=== PATIENT | female | born 1965 ===

== ENCOUNTER 2018-11-25 08:22 | Emergency (ER) | payer OTHER ==
--- OUTSIDE RECORDS SUMMARY | 2018-11-25 08:32 | XMS REPORT | Continuity of Care Document ---
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 Active Family History Date Family Member(s) Problem(s) Comments General Non Contributory First Daughter Migraine Second Daughter Migraine Social History Type Date Description Comments Sex Unknown Tobacco Use Start: Unknown Denies Smoking Recreational Drug Use Denies Drug Use Tobacco Use Start: Unknown Patient has never smoked Smoking Status Reviewed: 09/23/17 Patient has never smoked Seat Belt/Car Seat Always uses a seat belt Allergies, Adverse Reactions, Alerts Date Description Reaction Status Severity Comments 02/20/2011 NKDA Active 10/16/2005 Nka Active Medications Medication Date Status Form Strength Qnty SIG Indications Ordering Provider Hydrocodone 04/27/ Active Tablets 5-325mg 120tab 1 tab by Candie Bitartrate/Acet 2018 s mouth every Juan Carlos, aminophen 6 hours M.DNeil Levothyroxine 11/18/ Active Tablets 200mcg 90tabs 1 by mouth Candie Sodium 2017 every day Anh Rangel Levothyroxine 11/18/ Active Tablets 25mcg 90tabs 1 by mouth E03.9 Candie Sodium 2017 every day Anh Rangel Ciprofloxacin 04/27/ Hx Tablets 250mg 14tabs 1 by mouth N39.0 Candie HCL 2018 - twice a day Juan Carlos 10/29/ M.D. 2018 Azithromycin 09/23/ Hx Tablets 250mg 6tabs 2 po today, J01.90 Candie 2017 - 1 po day 2 Gauss, 01/12/ thru 5 M.D. 2017 Levothyroxine 07/11/ Hx Tablets 200mcg 90tabs 1 by mouth Candie Sodium 2015 - every day Gauss, 11/18/ M.D. 2016 Hydrocodone 12/27/ Hx Tablets 5-300mg 120tab 1 by mouth Candie Bitartrate/Acet 2014 - s every 6 Gauss, aminophen 04/27/ hours as M.D. 2018 needed severe pain Azithromycin 01/12/ Hx Tablets 250mg 6tabs 2 po today, 473.90 Candie 2012 - 1 po day 2 Gauss, 07/05/ thru 5 M.D. 2012 Robitussin With 01/12/ Hx Liquid 8Oz 1-2 473.90 Candie Codeine 2012 - teaspoon po Gauss, 07/05/ q 4-6 hrs M.D. 2012 for cough Azithromycin 11/05/ Hx Tablets 250mg 6tabs 2 po today, 473.90 Candie 2011 - 1 po day 2 Gauss, 11/14/ thru 5 M.D. 2011 Tramadol HCL 11/21/ Hx Tablets 50mg 60tabs 1 po q 6 346.93 Candie 2011 - hours prn Gauss, 02/20/ pain M.D. 2010 Hydrocodone/Apa 05/31/ Hx Tablets 5-500mg 120tab 1 po q 6 847.0 Candie corona 2008 - s hours prn Gauss, 12/27/ pain M.D. 2013 Levothyroxine 03/01/ Hx Tablets 175mcg 90tabs 1 po qd 244.90 Candie Sodium 2008 - Gauss, 07/11/ M.D. 2014 Zithromax 11/30/ Hx Tablets 500mg 5tabs 1 po qd 473.90 Candie 2008 - for five Gauss, 03/01/ days M.D. 2008 Flexeril 11/30/ Hx Tablets 5mg 30tabs 1 po tid 840.9 Candie 2008 - prn Gauss, 04/20/ M.D. 2013 Treximet 08/24/ Hx Tablets 85-500mg 30tabs 1tab po qd 346.93 Candie 2008 - prn Juan Carlos, M.D. 2009 Bactrim DS 05/10/ Hx Tablets 800-160 20tabs 1 PO bid 599.0 Candie 2007 - Juan Carlos, M.D. 2008 Celebrex 12/20/ Hx Capsules 200mg 180cap 1 po bid Candie 2008 - s Juan Carlos, M.D. 2008 Naproxen Sodium 12/16/ Hx Tablets 500mg 60tabs 1 po tid Candie Extended 2008 - with food Juan Carlos, Release 12/20/ prn pain M.D. 2008 Ultracet 12/15/ Hx Tablets 325mg;37.5 30tabs one po q 6 Candie 2008 - mg hr.prn Juan Carlos M.D. 2008 Flexeril 12/09/ Hx Tablets 5mg 30tabs 1 po tid 847.0 Candie 2008 - prn Juan Carlos, M.D. 2007 Levoxyl 08/20/ Hx Tablets 150mcg 90tabs 1 Tab po qd 244.90 Candie 2006 - Juan Carlos M.DNeil 2009 Relpax 02/17/ Hx Tablets 40mg 1 po at 346.80 Candie 2007 - onset of Juan Carlos, M.D. 2008 Zithromax 08/19/ Hx Tablets 500mg 3tabs 1 tab po qd 473.90 Candie Tri-Paramjit 2006 - for 3 days Juan Carlos M.DNeil 2007 Levoxyl 07/03/ Hx Tablets 137mcg 90tabs 1 po qd Candie 2005 - Juan Carlos M.D. 2007 Zithromax Z-Paramjit 12/06/ Hx Tablets 250mg 1Pak 1 po qd as Candie 2006 - directed Juan Carlos 12/16/ M.D. 2006 Levoxyl 10/16/ Hx Tablets 50mcg 90tabs 1 po qd Candie 2006 - Juan Carlos M.D. 2006 Levoxyl 10/16/ Hx Tablets 112mcg 90tabs 1 po qd Candie 2006 - Juan Carlos M.D. 2006 Ibuprofen 10/16/ Hx Tablets 400mg 1 Tab PO Candie 2006 - Every 6 HRS Juan Carlos 03/01/ as Needed M.DNeil 2008 Vicoprofen 10/16/ Hx Tablets 7.5mg;200 15tabs 1 tab po 842.02 Candie 2006 - mg bid prn Juan Carlos, 05/31/ Anh 2009 Medications Administered in Office Medication Date Status Form Strength Qnty SIG Indications Ordering Provider PPD Administered Injection Candie Rangel, 6 M.DNeil PPD Administered Injection Nurse 6 Immunizations CPT Code Status Date Vaccine Lot # [id number] Given 10/06/1989 Tetanus And Diptheria Toxiods TD-146 Vital Signs Date Vital Result Comment 11/02/2018 3:21pm BP Systolic 122 mmHg BP Diastolic 80 mmHg Heart Rate 72 /min Height 63 inches 5'3" Weight 165.00 lb BMI (Body Mass Index) 29.2 kg/m2 O2 % BldC Oximetry 99 % 08/03/2018 2:47pm BP Systolic 118 mmHg BP Diastolic 86 mmHg Heart Rate 86 /min Respiratory Rate 18 /min Height 63 inches 5'3" Weight 158.00 lb BMI (Body Mass Index) 28.0 kg/m2 O2 % BldC Oximetry 97 % 04/27/2018 1:25pm BP Systolic 130 mmHg BP Diastolic 80 mmHg Heart Rate 72 /min Body Temperature 97.3 F Respiratory Rate 18 /min Height 63 inches 5'3" Weight 158.00 lb BMI (Body Mass Index) 28.0 kg/m2 O2 % BldC Oximetry 98 % 01/12/2018 3:17pm BP Systolic 120 mmHg BP Diastolic 86 mmHg Heart Rate 75 /min Respiratory Rate 18 /min Height 63 inches 5'3" Weight 158.00 lb BMI (Body Mass Index) 28.0 kg/m2 O2 % BldC Oximetry 96 % 09/23/2017 2:49pm BP Systolic 122 mmHg BP Diastolic 80 mmHg Heart Rate 78 /min Body Temperature 97.0 F O2 % BldC Oximetry 98 % 07/08/2017 2:59pm BP Systolic 120 mmHg BP Diastolic 80 mmHg Height 63 inches 5'3" Weight 156.00 lb BMI (Body Mass Index) 27.6 kg/m2 03/11/2017 2:33pm BP Systolic 122 mmHg BP Diastolic 60 mmHg Height 63 inches 5'3" Weight 156.00 lb BMI (Body Mass Index) 27.6 kg/m2 12/30/2016 3:01pm BP Systolic 110 mmHg BP Diastolic 66 mmHg 11/18/2016 2:42pm BP Systolic 120 mmHg BP Diastolic 72 mmHg Height 63 inches 5'3" Weight 152.00 lb BMI (Body Mass Index) 26.9 kg/m2 08/01/2016 10:41am BP Systolic 130 mmHg BP Diastolic 68 mmHg 07/01/2016 10:27am BP Systolic 112 mmHg BP Diastolic 68 mmHg Height 64 inches 5'4" Weight 153.00 lb BMI (Body Mass Index) 26.3 kg/m2 02/27/2016 11:00am BP Systolic 112 mmHg BP Diastolic 74 mmHg Height 64 inches 5'4" Weight 156.00 lb BMI (Body Mass Index) 26.8 kg/m2 11/20/2015 10:11am BP Systolic 118 mmHg BP Diastolic 60 mmHg Height 64 inches 5'4" Weight 146.00 lb BMI (Body Mass Index) 25.1 kg/m2 08/15/2015 11:19am BP Systolic 110 mmHg BP Diastolic 78 mmHg Height 64 inches 5'4" Weight 154.00 lb BMI (Body Mass Index) 26.4 kg/m2 07/11/2015 9:58am BP Systolic 120 mmHg BP Diastolic 70 mmHg Height 64 inches 5'4" Weight 156.00 lb BMI (Body Mass Index) 26.8 kg/m2 04/10/2015 10:37am BP Systolic 110 mmHg BP Diastolic 70 mmHg 12/07/2014 10:07am BP Systolic 108 mmHg BP Diastolic 60 mmHg 08/09/2014 10:07am BP Systolic 118 mmHg BP Diastolic 74 mmHg Height 65 inches 5'5" Weight 151.00 lb BMI (Body Mass Index) 25.1 kg/m2 06/16/2014 1:06pm BP Systolic 112 mmHg BP Diastolic 70 mmHg 04/20/2014 10:12am BP Systolic 118 mmHg BP Diastolic 60 mmHg Height 66 inches 5'6" Weight 148.00 lb BMI (Body Mass Index) 23.9 kg/m2 12/20/2013 10:40am BP Systolic 110 mmHg BP Diastolic 70 mmHg Height 66 inches 5'6" Weight 152.00 lb BMI (Body Mass Index) 24.5 kg/m2 08/30/2013 10:52am BP Systolic 118 mmHg BP Diastolic 68 mmHg 07/06/2013 10:27am BP Systolic 110 mmHg BP Diastolic 70 mmHg Height 65 inches 5'5" Weight 146.00 lb BMI (Body Mass Index) 24.3 kg/m2 05/11/2013 1:25pm BP Systolic 100 mmHg BP Diastolic 64 mmHg 01/12/2013 11:25am BP Systolic 120 mmHg BP Diastolic 68 mmHg Body Temperature 98.1 F 12/30/2012 9:57am BP Systolic 110 mmHg BP Diastolic 66 mmHg Height 64 inches 5'4" Weight 145.00 lb BMI (Body Mass Index) 24.9 kg/m2 07/01/2012 10:00am BP Systolic 116 mmHg BP Diastolic 76 mmHg Height 64 inches 5'4" Weight 141.00 lb BMI (Body Mass Index) 24.2 kg/m2 02/13/2012 10:22am BP Systolic 110 mmHg BP Diastolic 68 mmHg Height 64 inches 5'4" Weight 142.00 lb BMI (Body Mass Index) 24.4 kg/m2 11/14/2011 11:19am BP Systolic 122 mmHg BP Diastolic 82 mmHg Height 64 inches 5'4" Weight 142.00 lb BMI (Body Mass Index) 24.4 kg/m2 11/05/2011 9:35am BP Systolic 116 mmHg BP Diastolic 80 mmHg Body Temperature 97.4 F 05/23/2011 11:38am BP Systolic 119 mmHg BP Diastolic 69 mmHg Height 64 inches 5'4" Weight 144.00 lb BMI (Body Mass Index) 24.7 kg/m2 11/21/2010 10:28am BP Systolic 130 mmHg BP Diastolic 68 mmHg Weight 142.00 lb 05/30/2010 10:55am BP Systolic 114 mmHg BP Diastolic 60 mmHg Weight 148.00 lb 11/29/2009 11:17am BP Systolic 120 mmHg BP Diastolic 68 mmHg Weight 141.00 lb 05/31/2009 10:08am BP Systolic 134 mmHg BP Diastolic 80 mmHg 03/01/2009 10:04am BP Systolic 132 mmHg BP Diastolic 80 mmHg Height 64 inches 5'4" Weight 152.00 lb BMI (Body Mass Index) 26.1 kg/m2 11/30/2008 2:42pm BP Systolic 118 mmHg BP Diastolic 60 mmHg Height 64 inches 5'4" Weight 146.00 lb BMI (Body Mass Index) 25.1 kg/m2 08/24/2008 10:04am BP Systolic 116 mmHg BP Diastolic 78 mmHg Height 64 inches 5'4" Weight 143.00 lb BMI (Body Mass Index) 24.5 kg/m2 05/10/2008 10:58am BP Systolic 132 mmHg BP Diastolic 70 mmHg Body Temperature 97.9 F Height 64 inches 5'4" 02/18/2008 10:16am BP Systolic 114 mmHg BP Diastolic 80 mmHg Height 64 inches 5'4" Weight 133.00 lb BMI (Body Mass Index) 22.8 kg/m2 12/10/2007 10:09am BP Systolic 100 mmHg BP Diastolic 70 mmHg Height 64 inches 5'4" 08/20/2007 9:52am BP Systolic 118 mmHg BP Diastolic 66 mmHg Height 64 inches 5'4" Weight 138.31 lb BMI (Body Mass Index) 23.7 kg/m2 02/17/2007 11:00am BP Systolic 128 mmHg BP Diastolic 68 mmHg Height 64 inches 5'4" Weight 149.00 lb BMI (Body Mass Index) 25.6 kg/m2 08/19/2006 10:39am BP Systolic 118 mmHg BP Diastolic 64 mmHg Height 64 inches 5'4" Weight 145.00 lb BMI (Body Mass Index) 24.9 kg/m2 07/03/2006 10:08am BP Systolic 122 mmHg BP Diastolic 68 mmHg Height 64 inches 5'4" Weight 144.00 lb BMI (Body Mass Index) 24.7 kg/m2 12/24/2005 10:04am BP Systolic 128 mmHg BP Diastolic 78 mmHg Height 64 inches 5'4" Weight 138.00 lb BMI (Body Mass Index) 23.7 kg/m2 10/16/2005 3:57pm BP Systolic 124 mmHg BP Diastolic 70 mmHg Height 64 inches 5'4" Results Test Date Facility Test Result H/L Range Note TSH & T4,Free 10/26/2018 [facility] TSH 0.36 mIU/L Low 0.40-4.50 1, [address] [place] [address] [phone] T4,Free 0.7 ng/dL Low 0.8-1.8 CBC 10/26/2018 [facility] WBC 3.9 3.8-10.8 (H/H,RBC,Indices,WBC,PLT) [address] thous/[place] [address] [phone] RBC 4.32 mill/L 3.80-5.10 Hemoglobin 12.9 g/dL 11.7-15.5 Hematocrit 38.0 % 35.0-45.0 MCV 88.2 FL 80.0-100.0 MCH 29.9 pg 27.0-33.0 MCHC 33.9 g/dL 32.0-36.0 RDW 13.5 % 11.0-15.0 Platelet Count 232 thous/L 140-400 MPV 10.3 FL 7.5-12.5 Basic Metabolic Panel 10/26/2018 [facility] Sodium 142 mmol/L 135-[address] [place] [address] [phone] Potassium 3.6 mmol/L 3.5-5.3 Chloride 107 mmol/L 98-110 Carbon Dioxide 29 mmol/L 20-32 3 Calcium 9.3 mg/dL 8.6-10.4 Glucose 79 mg/dL 65-99 4 Urea Nitrogen (BUN) 15 mg/dL 7-25 Creatinine 1.00 mg/dL 0.50-1.05 5 BUN/Creatinine Ratio 14.6 6-22 Egfr Non-Afr. Portuguese 65 ML/MIN/1.73M2 > Or=60 Egfr 75 ML/MIN/1.73M2 > Or=60 Lipid Panel 10/26/2018 [facility] Cholesterol 187 mg/dL <199 [address] [facility] [place] [address] [phone] HDL Cholesterol 62 mg/dL >50 Cholesterol/HDL Ratio 3.0 CALC <5.0 LDL Chol,Calculated 109 mg/dL High 0-100 6 Triglycerides 71 mg/dL <150 Non-HDL Cholesterol 126 mg/dL <130 7 CBC W/ Diff & PLT 04/21/2018 [facility] WBC 10.7 thous/L 3.8-10.8 [address] [facility] [place] [address] [phone] RBC 4.26 mill/L 3.80-5.10 Hemoglobin 12.9 g/dL 11.7-15.5 Hematocrit 39.3 % 35.0-45.0 MCV 92.4 FL 80.0-100.0 MCH 30.4 pg 27.0-33.0 MCHC 32.9 g/dL 32.0-36.0 RDW 13.6 % 11.0-15.0 Platelet Count 226 thous/L 140-400 Platelet Sufficiency PENDING MPV 10.5 FL 7.5-12.5 Neutrophils,Absolute 8660 cells/L High 0961-2841 Bands,Absolute PENDING Metamyelocytes,Absolute PENDING Myelocytes,Absolute PENDING Promyelocytes,Absolute PENDING Lymphocytes,Absolute 1240 cells/L 850-3900 Monocytes,Absolute 780 cells/L 200-950 Eosinophils,Absolute 40 cells/L 15-500 Basophils,Absolute 20 cells/L 0-200 Blast Cells,Absolute PENDING Nucleated RBC,Absolute PENDING Total Neutrophils,% 81 % High 40-75 Bands,% PENDING Metamyelocytes,% PENDING Myelocytes,% PENDING Promyelocytes,% PENDING Total Lymphocytes,% 12 % 12-47 Monocytes,% 7 % 4-12 Eosinophils,% 0 % 0-4 Basophils,% 0 % 0-1 8 Blasts,% PENDING Nucleated RBC PENDING RBC Morphology PENDING Anisocytosis PENDING Poikilocytosis PENDING Microcytosis PENDING Macrocytosis PENDING Polychromasia PENDING Hypochromasia PENDING Target Cells PENDING Basophilic Stippling PENDING Comment PENDING Lipid Panel 04/21/2018 [facility] Cholesterol 178 mg/dL <199 [address] [place] [id number] [phone] HDL Cholesterol 69 mg/dL >50 Cholesterol/HDL Ratio 2.6 CALC <5.0 LDL Chol,Calculated 95 mg/dL 0-100 9 Triglycerides 53 mg/dL <150 Non-HDL Cholesterol 109 mg/dL <130 10 Basic Metabolic Panel 04/21/2018 [facility] Sodium 140 mmol/L 135-146 6 [place], [place] [id number] [phone] Potassium 4.3 mmol/L 3.5-5.3 Chloride 105 mmol/L 98-110 Carbon Dioxide 25 mmol/L 20-31 Calcium 9.7 mg/dL 8.6-10.4 Glucose 94 mg/dL 65-99 11 Urea Nitrogen (BUN) 19 mg/dL 7-25 Creatinine 1.03 mg/dL 0.50-1.05 12 BUN/Creatinine Ratio 18.7 6-22 Egfr Non-Afr. Portuguese 63 ML/MIN/1.73M2 > Or=60 Egfr 73 ML/MIN/1.73M2 > Or=60 TSH & T4,Free 04/21/2018 [facility] TSH <0.01 mIU/L Low 0.40-4.[address] [place], [place] [id number] [phone] T4,Free 1.6 ng/dL 0.8-1.8 Lipid Panel 01/06/2018 [facility] Cholesterol 160 mg/dL <[address] [place], [place] [id number] [phone] HDL Cholesterol 57 mg/dL >50 Cholesterol/HDL Ratio 2.8 CALC <5.0 LDL Chol,Calculated 89 mg/dL 0-100 14 Triglycerides 48 mg/dL <150 Non-HDL Cholesterol 104 mg/dL <130 15 CBC W/ Diff & PLT 01/06/2018 [facility] WBC 5.6 thous/L 3.8-10.[address] [place], [place] [id number] [phone] RBC 4.04 mill/L 3.80-5.10 Hemoglobin 12.2 g/dL 11.7-15.5 Hematocrit 37.5 % 35.0-45.0 MCV 92.7 FL 80.0-100.0 MCH 30.2 pg 27.0-33.0 MCHC 32.6 g/dL 32.0-36.0 RDW 13.6 % 11.0-15.0 Platelet Count 269 thous/L 140-400 Platelet Sufficiency PENDING MPV 10.4 FL 7.5-12.5 Neutrophils,Absolute 3000 cells/L 8797-1833 Bands,Absolute PENDING Metamyelocytes,Absolute PENDING Myelocytes,Absolute PENDING Promyelocytes,Absolute PENDING Lymphocytes,Absolute 1900 cells/L 850-3900 Monocytes,Absolute 600 cells/L 200-950 Eosinophils,Absolute 100 cells/L 15-500 Basophils,Absolute 0 cells/L 0-200 Blast Cells,Absolute PENDING Nucleated RBC,Absolute PENDING Total Neutrophils,% 54 % 40-75 Bands,% PENDING Metamyelocytes,% PENDING Myelocytes,% PENDING Promyelocytes,% PENDING Total Lymphocytes,% 35 % 12-47 Monocytes,% 10 % 4-12 Eosinophils,% 1 % 0-4 Basophils,% 1 % 0-1 16 Blasts,% PENDING Nucleated RBC PENDING RBC Morphology PENDING Anisocytosis PENDING Poikilocytosis PENDING Microcytosis PENDING Macrocytosis PENDING Polychromasia PENDING Hypochromasia PENDING Target Cells PENDING Basophilic Stippling PENDING Comment PENDING TSH & T4,Free 01/06/2018 [facility] TSH 0.01 mIU/L Low 0.40-4.50 17 [address] [facility]. [place], [place] [address] [phone] T4,Free 1.7 ng/dL 0.8-1.8 Basic Metabolic Panel 01/06/2018 [facility] Sodium 141 mmol/L 135-[address] [place], [place] [id number] [phone] Potassium 4.8 mmol/L 3.5-5.3 Chloride 108 mmol/L 98-110 Carbon Dioxide 28 mmol/L 20-31 Calcium 9.6 mg/dL 8.6-10.4 Glucose 103 mg/dL High 65-99 18 Urea Nitrogen (BUN) 21 mg/dL 7-25 Creatinine 0.96 mg/dL 0.50-1.05 19 BUN/Creatinine Ratio 21.4 6-22 Egfr Non-Afr. Portuguese 68 ML/MIN/1.73M2 > Or=60 Egfr 79 ML/MIN/1.73M2 > Or=60 CBC W/ Diff & PLT 06/30/2017 [facility] WBC 4.8 thous/L 3.8-10.8 [address] [facility]. [place], [place] [id number] [phone] RBC 4.25 mill/L 3.80-5.10 Hemoglobin 12.9 g/dL 11.7-15.5 Hematocrit 39.1 % 35.0-45.0 MCV 92.0 FL 80.0-100.0 MCH 30.3 pg 27.0-33.0 MCHC 32.9 g/dL 32.0-36.0 RDW 13.9 % 11.0-15.0 Platelet Count 259 thous/L 140-400 Platelet Sufficiency PENDING MPV 10.7 FL 7.5-12.5 Neutrophils,Absolute 2410 cells/L 7837-3430 Bands,Absolute PENDING Metamyelocytes,Absolute PENDING Myelocytes,Absolute PENDING Promyelocytes,Absolute PENDING Lymphocytes,Absolute 1820 cells/L 850-3900 Monocytes,Absolute 440 cells/L 200-950 Eosinophils,Absolute 70 cells/L 15-500 Basophils,Absolute 30 cells/L 0-200 Blast Cells,Absolute PENDING Nucleated RBC,Absolute PENDING Total Neutrophils,% 51 % 40-75 Bands,% PENDING Metamyelocytes,% PENDING Myelocytes,% PENDING Promyelocytes,% PENDING Total Lymphocytes,% 38 % 12-47 Monocytes,% 9 % 4-12 Eosinophils,% 2 % 0-4 Basophils,% 1 % 0-1 20 Blasts,% PENDING Nucleated RBC PENDING RBC Morphology PENDING Anisocytosis PENDING Poikilocytosis PENDING Microcytosis PENDING Macrocytosis PENDING Polychromasia PENDING Hypochromasia PENDING Target Cells PENDING Basophilic Stippling PENDING Comment PENDING Basic Metabolic Panel 06/30/2017 [facility] Sodium 139 mmol/L 135-[address] [place] [address] [phone] Potassium 4.4 mmol/L 3.5-5.3 Chloride 107 mmol/L 98-110 Carbon Dioxide 25 mmol/L 20-31 Calcium 9.0 mg/dL 8.6-10.4 Glucose 93 mg/dL 65-99 21 Urea Nitrogen 19 mg/dL 7-25 Creatinine 0.95 mg/dL 0.50-1.05 22 BUN/Creatinine Ratio 19.7 6-22 Egfr Non-Afr. Portuguese 70 ML/MIN/1.73M2 > Or=60 Egfr 81 ML/MIN/1.73M2 > Or=60 TSH & T4,Free 06/30/2017 [facility] TSH 0.02 mIU/L Low 0.40-4.50 23 [address] [place] [address] [phone] T4,Free 1.7 ng/dL 0.8-1.8 Lipid Panel 06/30/2017 [facility] Cholesterol 176 mg/dL <199 [address] [facility] [place] [address] [phone] HDL Cholesterol 57 mg/dL >50 Cholesterol/HDL Ratio 3.1 CALC <5.0 LDL Chol,Calculated 103 mg/dL High <100 24 Triglycerides 69 mg/dL <150 Non-HDL Cholesterol 120 mg/dL <130 25 Basic Metabolic Panel 02/26/2017 [facility] Sodium 138 mmol/L 135-146 [address] [facility] [place] [address] [phone] Potassium 4.4 mmol/L 3.5-5.3 Chloride 102 mmol/L 98-110 Carbon Dioxide 29 mmol/L 20-31 Calcium 9.8 mg/dL 8.6-10.4 Glucose 118 mg/dL High 65-99 26 Urea Nitrogen 23 mg/dL 7-25 Creatinine 0.98 mg/dL 0.50-1.05 27 BUN/Creatinine Ratio 23.9 High 6-22 Egfr Non-Afr. Portuguese 67 ML/MIN/1.73M2 > Or=60 Egfr 78 ML/MIN/1.73M2 > Or=60 CBC W/ Diff & PLT 02/26/2017 [facility] WBC 5.1 thous/L 3.8-10.[address] [place] [address] [phone] RBC 4.42 mill/L 3.80-5.10 Hemoglobin 13.0 g/dL 11.7-15.5 Hematocrit 40.3 % 35.0-45.0 MCV 91.1 FL 80.0-100.0 MCH 29.4 pg 27.0-33.0 MCHC 32.3 g/dL 32.0-36.0 RDW 12.8 % 11.0-15.0 Platelet Count 323 thous/L 140-400 Platelet Sufficiency PENDING MPV 9.6 FL 7.5-12.5 Neutrophils,Absolute 2830 cells/L 6489-2443 Bands,Absolute PENDING Metamyelocytes,Absolute PENDING Myelocytes,Absolute PENDING Promyelocytes,Absolute PENDING Lymphocytes,Absolute 1790 cells/L 850-3900 Monocytes,Absolute 340 cells/L 200-950 Eosinophils,Absolute 110 cells/L 15-500 Basophils,Absolute 30 cells/L 0-200 Blast Cells,Absolute PENDING Nucleated RBC,Absolute PENDING Total Neutrophils,% 56 % 40-75 Bands,% PENDING Metamyelocytes,% PENDING Myelocytes,% PENDING Promyelocytes,% PENDING Total Lymphocytes,% 35 % 12-47 Monocytes,% 7 % 4-12 Eosinophils,% 2 % 0-4 Basophils,% 1 % 0-1 28 Blasts,% PENDING Nucleated RBC PENDING RBC Morphology PENDING Anisocytosis PENDING Poikilocytosis PENDING Microcytosis PENDING Macrocytosis PENDING Polychromasia PENDING Hypochromasia PENDING Target Cells PENDING Basophilic Stippling PENDING Comment PENDING TSH & T4,Free 02/26/2017 [facility] TSH <0.01 mIU/L Low 0.40-4.[address] [place] [address] [phone] T4,Free 1.6 ng/dL 0.8-1.8 Lipid Panel 02/26/2017 [facility] Cholesterol 183 mg/dL 125-[address] [place] [address] [phone] HDL Cholesterol 57 mg/dL > Or=46 Cholesterol/HDL Ratio 3.2 < Or=5.0 LDL Chol,Calculated 113 mg/dL <130 30 Triglycerides 65 mg/dL <150 Non-HDL Cholesterol 126 mg/dL 31 Thyroid 12/24/2016 [facility] Thyroglobulin 9 IU/mL High <Or=1 32 Peroxidase & [address] [place] [address] [phone] Thyroid Peroxidase AB 40 IU/mL High <9 TSH & T4,Free 12/24/2016 [facility] TSH 0.03 mIU/L Low 0.40-4.[address] [place] [address] [phone] T4,Free 1.9 ng/dL High 0.8-1.8 TSH & T4,Free 11/11/2016 [facility] TSH 18.93 mIU/L High 0.40-4.[address] [place] [address] [phone] T4,Free 0.7 ng/dL Low 0.8-1.8 TSH & T4,Free 06/25/2016 [facility] TSH 11.32 mIU/L High 0.40-4.[address] [place] [address] [phone] T4,Free 0.7 ng/dL Low 0.8-1.8 TSH & T4,Free 02/13/2016 [facility] TSH 15.79 mIU/L High 0.40-4.[address] [place] [address] [phone] T4,Free 0.8 ng/dL 0.8-1.8 CBC W/ Diff & PLT 02/13/2016 [facility] WBC 7.0 thous/L 3.8-10.8 [address] [place] [address] [phone] RBC 4.12 mill/L 3.80-5.10 Hemoglobin 12.6 g/dL 11.7-15.5 Hematocrit 39.1 % 35.0-45.0 MCV 94.8 FL 80.0-100.0 MCH 30.5 pg 27.0-33.0 MCHC 32.2 g/dL 32.0-36.0 RDW 14.4 % 11.0-15.0 Platelet Count 232 thous/L 140-400 Platelet Sufficiency NORMAL Normal MPV 10.3 FL 7.5-11.5 Neutrophils,Absolute 4790 cells/L 3927-7145 Bands,Absolute PENDING Metamyelocytes,Absolute PENDING Myelocytes,Absolute PENDING Promyelocytes,Absolute PENDING Lymphocytes,Absolute 1680 cells/L 850-3900 Monocytes,Absolute 420 cells/L 200-950 Eosinophils,Absolute 40 cells/L 15-500 Basophils,Absolute 40 cells/L 0-200 Blast Cells,Absolute PENDING Nucleated RBC,Absolute PENDING Total Neutrophils,% 68 % 40-75 Bands,% PENDING Metamyelocytes,% PENDING Myelocytes,% PENDING Promyelocytes,% PENDING Total Lymphocytes,% 24 % 12-47 Monocytes,% 6 % 4-12 Eosinophils,% 1 % 0-4 Basophils,% 1 % 0-1 37 Blasts,% PENDING Nucleated RBC PENDING RBC Morphology NORMAL Anisocytosis PENDING Poikilocytosis PENDING Microcytosis PENDING Macrocytosis PENDING Polychromasia PENDING Hypochromasia PENDING Target Cells PENDING Basophilic Stippling PENDING Comment PENDING BMP W/O Egfr 02/13/2016 [facility] Sodium 138 mmol/L 135-146 [address] [place] [address] [phone] Potassium 4.6 mmol/L 3.5-5.3 Chloride 104 mmol/L 98-110 Carbon Dioxide 25 mmol/L 19-30 Calcium 9.5 mg/dL 8.6-10.2 Glucose 76 mg/dL 65-99 38 Urea Nitrogen 18 mg/dL 7-25 Creatinine 1.13 mg/dL High 0.50-1.10 BUN/Creatinine Ratio 16.3 6-22 Lipid Panel 02/13/2016 [facility] Cholesterol 217 mg/dL High 125-[address] [place] [address] [phone] HDL Cholesterol 81 mg/dL > Or=46 Cholesterol/HDL Ratio 2.7 < Or=5.0 LDL Chol,Calculated 125 mg/dL <130 39 Triglycerides 53 mg/dL <150 Non-HDL Cholesterol 136 mg/dL 40 TSH & T4,Free 11/13/2015 [facility] TSH 0.03 mIU/L Low 0.40-4.50 41 [address] [facility] [place] [address] [phone] T4,Free 1.3 ng/dL 0.8-1.8 BMP W/O Egfr 08/08/2015 [facility] Sodium 139 mmol/L 135-[address] [place] [address] [phone] Potassium 4.4 mmol/L 3.5-5.3 Chloride 104 mmol/L 98-110 Carbon Dioxide 28 mmol/L 19-30 Calcium 9.6 mg/dL 8.6-10.2 Glucose 91 mg/dL 65-99 42 Urea Nitrogen 14 mg/dL 7-25 Creatinine 1.00 mg/dL 0.50-1.10 BUN/Creatinine Ratio 13.8 6-22 TSH & T4,Free 08/08/2015 [facility] TSH 0.07 mIU/L Low 0.40-4.[address] [place] [address] [phone] T4,Free 1.4 ng/dL 0.8-1.8 CBC W/ Diff & PLT 07/04/2015 [facility] WBC 3.9 thous/L 3.8-10.8 [address] [facility] [place] [address] [phone] RBC 4.09 mill/L 3.80-5.10 Hemoglobin 12.8 g/dL 11.7-15.5 Hematocrit 39.1 % 35.0-45.0 MCV 95.5 FL 80.0-100.0 MCH 31.3 pg 27.0-33.0 MCHC 32.7 g/dL 32.0-36.0 RDW 14.4 % 11.0-15.0 Platelet Count 236 thous/L 140-400 Platelet Sufficiency PENDING MPV 10.2 FL 7.5-11.5 Neutrophils,Absolute 2420 cells/L [phone] Bands,Absolute PENDING Metamyelocytes,Absolute PENDING Myelocytes,Absolute PENDING Promyelocytes,Absolute PENDING Lymphocytes,Absolute 1080 cells/L 850-3900 Monocytes,Absolute 310 cells/L 200-950 Eosinophils,Absolute 70 cells/L 15-500 Basophils,Absolute 0 cells/L 0-200 Blast Cells,Absolute PENDING Nucleated RBC,Absolute PENDING Total Neutrophils,% 62 % 40-75 Bands,% PENDING Metamyelocytes,% PENDING Myelocytes,% PENDING Promyelocytes,% PENDING Total Lymphocytes,% 28 % 12-47 Monocytes,% 8 % 4-12 Eosinophils,% 2 % 0-4 Basophils,% 0 % 0-1 44 Blasts,% PENDING Nucleated RBC PENDING RBC Morphology PENDING Anisocytosis PENDING Poikilocytosis PENDING Microcytosis PENDING Macrocytosis PENDING Polychromasia PENDING Hypochromasia PENDING Target Cells PENDING Basophilic Stippling PENDING Comment PENDING TSH & T4,Free 07/04/2015 [facility] TSH 5.44 mIU/L High 0.40-4.50 45 6 [place], [place] [id number] [phone] T4,Free 1.2 ng/dL 0.8-1.8 BMP W/O Egfr 07/04/2015 [facility] Sodium 138 mmol/L 135-146 [address] [place], [place] [id number] [phone] Potassium 4.7 mmol/L 3.5-5.3 Chloride 102 mmol/L 98-110 Carbon Dioxide 26 mmol/L 19-30 Calcium 10.3 mg/dL High 8.6-10.2 Glucose 87 mg/dL 65-99 46 Urea Nitrogen 22 mg/dL 7-25 Creatinine 1.28 mg/dL High 0.50-1.10 BUN/Creatinine Ratio 16.9 6-22 Lipid Panel 07/04/2015 [facility] Cholesterol 212 mg/dL High 125-[address] [place] [address] [phone] HDL Cholesterol 73 mg/dL > Or=46 Cholesterol/HDL Ratio 2.9 < Or=5.0 LDL Chol,Calculated 124 mg/dL <130 47 Triglycerides 74 mg/dL <150 Non-HDL Cholesterol 139 mg/dL 48 TSH & T4,Free 11/30/2014 [facility] TSH 3.23 mIU/L 0.40-4.[address] [place] [address] [phone] T4,Free 1.2 ng/dL 0.8-1.8 Laboratory test 11/30/2014 [facility] Iron,Total 230 g/dL High 40-190 finding [address] [facility] [place] [place] [address] [phone] Direct LDL 121 mg/dL <130 50 TSH & T4,Free 08/03/2014 [facility] TSH 3.59 mIU/L 0.40-4.50 51 [address] [facility] [place] [place] [address] [phone] T4,Free 0.8 ng/dL 0.8-1.8 Laboratory test 08/03/2014 [facility] Iron,Total 164 g/dL 40-190 finding [address] [facility] [place] [place] [address] [phone] TSH & T4,Free 06/17/2014 [facility] TSH 0.01 mIU/L Low 0.40-4.50 52 [address] [facility] [place] [place] [address] [phone] T4,Free 1.8 ng/dL 0.8-1.8 TSH & T4,Free 04/13/2014 [facility] TSH 0.19 mIU/L Low 0.40-4.50 53 [address] [facility] [place] [place] [address] [phone] T4,Free 1.2 ng/dL 0.8-1.8 TSH & T4,Free 12/09/2013 [facility] TSH 9.25 mIU/L High 0.40-4.50 54 [address] [facility] [place] [place] [address] [phone] T4,Free 0.9 ng/dL 0.8-1.8 Culture,Urine,Voided 07/06/2013 [facility] URINE-CC [address] [place] [address] [phone] Final Report (SEE NOTE) 55 BMP W/O Egfr 06/29/2013 [facility] Sodium 138 mmol/L 135-[address] [place] [address] [phone] Potassium 4.4 mmol/L 3.5-5.3 Chloride 106 mmol/L 98-110 Carbon Dioxide 25 mmol/L 19-30 Calcium 9.6 mg/dL 8.6-10.2 Glucose 80 mg/dL 65-99 56 Urea Nitrogen 13 mg/dL 7-25 Creatinine 1.01 mg/dL 0.50-1.10 BUN/Creatinine Ratio 12.4 6-22 CBC W/ Diff & PLT 06/29/2013 [facility] WBC 4.1 thous/L 3.8-10.[address] [place] [address] [phone] RBC 3.83 mill/L 3.80-5.10 Hemoglobin 12.1 g/dL 11.7-15.5 Hematocrit 35.8 % 35.0-45.0 MCV 93.3 FL 80.0-100.0 MCH 31.5 pg 27.0-33.0 MCHC 33.7 g/dL 32.0-36.0 RDW 13.5 % 11.0-15.0 Platelet Count 223 thous/L 140-400 Neutrophils,Absolute 2480 cells/L 7676-1672 Lymphocytes,Absolute 1320 cells/L 850-3900 Monocytes,Absolute 260 cells/L 200-950 Eosinophils,Absolute 50 cells/L 15-500 Basophils,Absolute 30 cells/L 0-200 Total Neutrophils,% 60 % 38-80 Total Lymphocytes,% 32 % 15-49 Monocytes,% 6 % 0-13 Eosinophils,% 1 % 0-8 Basophils,% 1 % 0-2 TSH & T4,Free 06/29/2013 [facility] TSH 1.42 mIU/L 0.40-4.[address] [place] [address] [phone] T4,Free 1.3 ng/dL 0.8-1.8 TSH & T4,Free 12/23/2012 [facility] TSH 2.78 mIU/L 0.40-4.[address] [place], [place] [id number] [phone] T4,Free 1.0 ng/dL 0.8-1.8 59 TSH & T4,Free 06/24/2012 [facility] TSH 0.14 mIU/L Low 0.40-4.[address] [place], [place] [address] [phone] T4,Free 1.2 ng/dL 0.8-1.8 CBC W/ Diff & PLT 06/24/2012 [facility] WBC 5.0 thous/L 3.8-10.[address] [place] [address] [phone] RBC 3.63 mill/L Low 3.80-5.10 Hemoglobin 11.8 g/dL 11.7-15.5 Hematocrit 34.8 % Low 35.0-45.0 MCV 96.0 FL 80.0-100.0 MCH 32.6 pg 27.0-33.0 MCHC 34.0 g/dL 32.0-36.0 RDW 13.0 % 11.0-15.0 Platelet Count 205 thous/L 140-400 Neutrophils,Absolute 3430 cells/L 0966-9227 Lymphocytes,Absolute 1200 cells/L 850-3900 Monocytes,Absolute 340 cells/L 200-950 Eosinophils,Absolute 30 cells/L 15-500 Basophils,Absolute 20 cells/L 0-200 Total Neutrophils,% 68 % 38-80 Total Lymphocytes,% 24 % 15-49 Monocytes,% 7 % 0-13 Eosinophils,% 1 % 0-8 Basophils,% 1 % 0-2 Laboratory test 06/24/2012 [facility] Glucose 83 mg/dL 65-99 [address] [place], [place] [id number] [phone] TSH & T4,Free 02/04/2012 [facility] TSH 2.63 mIU/L 0.40-4.[address] [place] [address] [phone] T4,Free 1.0 ng/dL 0.8-1.8 TSH & T4,Free 11/07/2011 [facility] TSH 4.98 mIU/L High 0.40-4.[address] [place], [place] [address] [phone] T4,Free 0.6 ng/dL Low 0.8-1.8 TSH & T4,Free 05/21/2011 [facility] TSH,3RD 0.01 mIU/L Low 0.40-4.[address] [place] [address] [phone] T4,Free 1.6 ng/dL 0.8-1.8 Laboratory test 05/21/2011 [facility] Glucose 98 mg/dL 65-99 [address] [place] [address] [phone] CBC W/ Diff & PLT 05/21/2011 [facility] WBC 5.5 thous/L 3.8-10.[address] [place], [place] [id number] [phone] RBC 4.03 mill/L 3.80-5.10 Hemoglobin 12.9 g/dL 11.7-15.5 Hematocrit 37.4 % 35.0-45.0 MCV 92.9 FL 80.0-100.0 MCH 32.1 pg 27.0-33.0 MCHC 34.5 g/dL 32.0-36.0 RDW 13.4 % 11.0-15.0 Platelet Count 235 thous/L 140-400 Neutrophils,Absolute 3340 cells/L 2873-5524 Lymphocytes,Absolute 1500 cells/L 850-3900 Monocytes,Absolute 470 cells/L 200-950 Eosinophils,Absolute 120 cells/L 15-500 Basophils,Absolute 40 cells/L 0-200 Total Neutrophils,% 61 % 38-80 Total Lymphocytes,% 28 % 15-49 Monocytes,% 9 % 0-13 Eosinophils,% 2 % 0-8 Basophils,% 1 % 0-2 Lipid Panel 05/21/2011 [facility] Cholesterol 179 mg/dL 125-[address] [place] [address] [phone] HDL Cholesterol 62 mg/dL > Or=46 Cholesterol/HDL Ratio 2.9 < Or=5.0 LDL Chol,Calculated 103 mg/dL <130 66 Triglycerides 71 mg/dL <150 T4 & TSH 02/06/2011 [facility] T4,Total 11.2 g/dL 4.5-12.[address] [place] [address] [phone] TSH,3RD Generation 0.01 mIU/L Low 0.40-4.50 67 Hepatic Function 02/06/2011 [facility] Alkaline Phosphatase 40 U/L 33- [address] [place] [address] [phone] Ast 12 U/L 10-30 Alt 12 U/L 6-40 Bilirubin,Total 0.5 mg/dL 0.2-1.2 Bilirubin,Direct 0.1 mg/dL < Or=0.2 Protein,Total 6.9 g/dL 6.2-8.3 Albumin 4.4 g/dL 3.6-5.1 Globulin,Calculated 2.5 g/dL 2.2-3.9 A/G Ratio 1.8 1.0-2.1 Vitamin D, 25 02/06/2011 [facility] Vitamin 27 ng/mL Low 30-[address] D,25-Oh,[place] [address] [phone] Vitamin D,25-Oh,D3 27 ng/mL Vitamin D,25-Oh,D2 <4 ng/mL 68 Basic Metabolic Panel 11/14/2010 [facility] Sodium 136 mmol/L 135-[address] [place] [address] [phone] Potassium 4.6 mmol/L 3.5-5.3 Chloride 105 mmol/L 98-110 Carbon Dioxide 22 mmol/L 21-33 Calcium 9.8 mg/dL 8.6-10.2 Glucose 87 mg/dL 65-99 69 Urea Nitrogen 20 mg/dL 7-25 Creatinine 1.00 mg/dL 0.59-1.07 BUN/Creatinine Ratio 19.8 6-22 Egfr Non-Afr. Portuguese 68 ML/MIN/1.73M2 > Or=60 Egfr 79 ML/MIN/1.73M2 > Or=60 Lipid Panel 11/14/2010 [facility] Cholesterol 182 mg/dL 125-[address] [place] [address] [phone] HDL Cholesterol 77 mg/dL > Or=46 Triglycerides 48 mg/dL <150 Cholesterol/HDL Ratio 2.4 < Or=5.0 LDL Chol,Calculated 95 mg/dL <130 70 CBC W/ Diff & PLT 11/14/2010 [facility] WBC 5.0 thous/L 3.8-10.[address] [place], [place] [id number] [phone] RBC 4.33 mill/L 3.80-5.10 Hemoglobin 13.5 g/dL 11.7-15.5 Hematocrit 40.2 % 35.0-45.0 MCV 92.9 FL 80.0-100.0 MCH 31.2 pg 27.0-33.0 MCHC 33.6 g/dL 32.0-36.0 RDW 13.2 % 11.0-15.0 Platelet Count 248 thous/L 140-400 Platelet Sufficiency NORMAL Normal Neutrophils,Absolute 3240 cells/L 4346-6806 Bands,Absolute DNR cells/L 0-750 Metamyelocytes,Absolute DNR cells/L 0 Myelocytes,Absolute DNR cells/L 0 Promyelocytes,Absolute DNR cells/L 0 Lymphocytes,Absolute 1290 cells/L 850-3900 Monocytes,Absolute 380 cells/L 200-950 Eosinophils,Absolute 20 cells/L 15-500 Basophils,Absolute 30 cells/L 0-200 Blast Cells,Absolute DNR cells/L 0 Nucleated RBC,Absolute DNR cells/L 0 Total Neutrophils,% 65 % 38-80 Bands,% DNR % 0-10 Metamyelocytes,% DNR % Myelocytes,% DNR % Promyelocytes,% DNR % Total Lymphocytes,% 26 % 15-49 Monocytes,% 8 % 0-13 Eosinophils,% 0 % 0-8 Basophils,% 1 % 0-2 Blasts,% DNR % Nucleated RBC DNR /100WBC 0 RBC Morphology NORMAL Anisocytosis DNR Poikilocytosis DNR Microcytosis DNR Macrocytosis DNR Polychromasia DNR Hypochromasia DNR Target Cells DNR Basophilic Stippling DNR Comment DNR TSH & T4,Free 11/14/2010 [facility] TSH,3RD <0.01 Low 0.40-4.[address] Generation mIU/L [place], [place] [address] [phone] T4,Free 1.4 ng/dL 0.8-1.8 TSH & T4,Free 05/16/2010 [facility] TSH,3RD 0.02 mIU/L Low 0.40-4.[address] [place] [address] [phone] T4,Free 1.0 ng/dL 0.8-1.8 BMP W/Egfr 11/16/2009 [facility] Sodium 140 mmol/L 135-[address] [place] [address] [phone] Potassium 3.7 mmol/L 3.5-5.3 Chloride 108 mmol/L 98-110 Carbon Dioxide 24 mmol/L 21-33 Calcium 8.8 mg/dL 8.6-10.2 Glucose 85 mg/dL 65-99 73 Urea Nitrogen 12 mg/dL 7-25 Creatinine 0.97 mg/dL 0.59-1.07 BUN/Creatinine Ratio 12.2 6-22 Egfr Non-Afr. Portuguese >60 ML/MIN/1.73M2 > Or=60 Egfr >60 ML/MIN/1.73M2 > Or=60 Lipid Panel 11/16/2009 [facility] Cholesterol 148 mg/dL 125-[address] [place] [address] [phone] HDL Cholesterol 47 mg/dL > Or=46 Cholesterol/HDL Ratio 3.1 < Or=5.0 LDL Chol,Calculated 80 mg/dL <130 74 Triglycerides 103 mg/dL <150 CBC W/ Diff & PLT 11/16/2009 [facility] WBC 3.7 thous/L Low 3.8-10.[address] [place] [address] [phone] RBC 4.19 mill/L 3.80-5.10 Hemoglobin 12.9 g/dL 11.7-15.5 Hematocrit 38.8 % 35.0-45.0 MCV 92.8 FL 80.0-100.0 MCH 30.8 pg 27.0-33.0 MCHC 33.2 g/dL 32.0-36.0 RDW 13.1 % 11.0-15.0 Platelet Count 239 thous/L 140-400 Platelet Sufficiency NORMAL Normal Neutrophils,Absolute 2570 cells/L 8282-3708 Bands,Absolute DNR cells/L 0-750 Metamyelocytes,Absolute DNR cells/L 0 Myelocytes,Absolute DNR cells/L 0 Promyelocytes,Absolute DNR cells/L 0 Lymphocytes,Absolute 670 cells/L Low 850-3900 Monocytes,Absolute 400 cells/L 200-950 Eosinophils,Absolute 40 cells/L 15-500 Basophils,Absolute 20 cells/L 0-200 Blast Cells,Absolute DNR cells/L 0 Nucleated RBC,Absolute DNR cells/L 0 Total Neutrophils,% 70 % 38-80 Bands,% DNR % 0-10 Metamyelocytes,% DNR % Myelocytes,% DNR % Promyelocytes,% DNR % Total Lymphocytes,% 18 % 15-49 Monocytes,% 11 % 0-13 Eosinophils,% 1 % 0-8 Basophils,% 0 % 0-2 Blasts,% DNR % Nucleated RBC DNR /100WBC 0 RBC Morphology NORMAL Anisocytosis DNR Poikilocytosis DNR Microcytosis DNR Macrocytosis DNR Polychromasia DNR Hypochromasia DNR Target Cells DNR Basophilic Stippling DNR Comment DNR TSH & T4,Free 11/16/2009 [facility] TSH,3RD 1.53 mIU/L 0.40-4.[address] [place], [place] [address] [phone] T4,Free 0.7 ng/dL Low 0.8-1.8 TSH & T4,Free 05/24/2009 [facility] TSH,3RD 0.02 mU/L Low 0.40-4.[address] [place], [place] [id number] [phone] T4,Free 1.6 ng/dL 0.8-1.8 CBC W/ Diff & PLT 02/22/2009 [facility] WBC 4.4 thous/L 3.8-10.[address] [place] [address] [phone] RBC 3.94 mill/L 3.80-5.10 Hemoglobin 12.9 g/dL 11.7-15.5 Hematocrit 36.7 % 35.0-45.0 MCV 93.0 FL 80.0-100.0 MCH 32.6 pg 27.0-33.0 MCHC 35.1 g/dL 32.0-36.0 RDW 13.2 % 11.0-15.0 Platelet Count 231 thous/L 140-400 Platelet Sufficiency NORMAL Normal Neutrophils,Absolute 2610 cells/L 4482-8055 Bands,Absolute DNR cells/L 0-750 Metamyelocytes,Absolute DNR cells/L 0 Myelocytes,Absolute DNR cells/L 0 Promyelocytes,Absolute DNR cells/L 0 Lymphocytes,Absolute 1320 cells/L 850-3900 Monocytes,Absolute 390 cells/L 200-950 Eosinophils,Absolute 40 cells/L 15-500 Basophils,Absolute 40 cells/L 0-200 Blast Cells,Absolute DNR cells/L 0 Nucleated RBC,Absolute DNR cells/L 0 Total Neutrophils,% 59 % 38-80 Bands,% DNR % 0-10 Metamyelocytes,% DNR % Myelocytes,% DNR % Promyelocytes,% DNR % Total Lymphocytes,% 30 % 15-49 Monocytes,% 9 % 0-13 Eosinophils,% 1 % 0-8 Basophils,% 1 % 0-2 Blasts,% DNR % Nucleated RBC DNR /100WBC 0 RBC Morphology NORMAL Anisocytosis DNR Poikilocytosis DNR Microcytosis DNR Macrocytosis DNR Polychromasia DNR Hypochromasia DNR Target Cells DNR Basophilic Stippling DNR Comment DNR Lipid Panel 02/22/2009 [facility] Cholesterol 164 mg/dL 125-[address] [place] [address] [phone] HDL Cholesterol 60 mg/dL > Or=46 Triglycerides 72 mg/dL <150 Cholesterol/HDL Ratio 2.7 < Or=5.0 LDL Chol,Calculated 90 mg/dL <130 77 TSH & T4,Free 02/22/2009 [facility] TSH,3RD 3.69 mU/L 0.40-4.[address] [place] [address] [phone] T4,Free 1.0 ng/dL 0.8-1.8 Laboratory test 02/22/2009 [facility] Glucose 55 mg/dL Low 65-99 [address] [place] [address] [phone] TSH & T4,Free 08/11/2008 [facility] TSH,3RD 0.52 mU/L 0.40-4.[address] [place] [address] [phone] T4,Free 1.1 ng/dL 0.8-1.8 TSH & T4,Free 02/04/2008 [facility] TSH,3RD 2.31 mU/L 0.40-4.[address] [place] [address] [phone] T4,Free 1.1 ng/dL 0.8-1.8 CSF Cell Count/Diff 12/11/2007 [facility] Color PINK [address] [place] [address] [phone] Appearance CLEAR CSF WBC 0 /mm3 0-5 CSF RBC 216 /mm3 High -0 Laboratory test 12/11/2007 [facility] CSF Cell DNR 83, [address] Count/[place] [address] [phone] Laboratory test 12/11/2007 [facility] CSF Glucose DNR [address] [place] [address] [phone] CSF Total Protein DNR 86 Laboratory test 12/11/2007 [facility] CSF Culture DNR [address] [place] [address] [phone] Laboratory test 12/11/2007 [facility] Urine HCG DNR [address] (Qualitative) [place] [address] [phone] TSH & T4,Free 08/13/2007 [facility] TSH,3RD 4.73 High 0.40- 89, [address] Generation mU/L 4.50 [place] [address] [phone] T4,Free 1.2 ng/dL 0.8-1.8 Lipid Panel 08/13/2007 [facility] Cholesterol 184 mg/dL 125-[address] [place] [address] [phone] HDL Cholesterol 74 mg/dL > Or=40 91 Cholesterol/HDL Ratio 2.5 < Or=5.0 LDL Chol,Calculated 102 mg/dL <130 92 Triglycerides 42 mg/dL <150 TSH & T4,Free 02/09/2007 [facility] TSH 4.70 mU/L 0.40-5.50 93 [facility] [place] [address] [phone] T4,Free 1.0 ng/dL 0.8-1.8 CBC W/ Diff & PLT 02/09/2007 [facility] WBC 4.9 thous/L 3.8-10.8 [address] [facility] [place] [address] [phone] RBC 4.16 mill/L 3.80-5.10 Hemoglobin 13.1 g/dL 11.7-15.5 Hematocrit 38.4 % 35.0-45.0 MCV 92.3 FL 80.0-100.0 MCH 31.6 pg 27.0-33.0 MCHC 34.2 g/dL 32.0-36.0 RDW 14.0 % 11.0-15.0 Platelet Count 261 thous/L 140-400 Platelet Sufficiency NORMAL Normal Neutrophils,Absolute 3380 cells/L 2636-4632 Bands,Absolute DNR cells/L 0-750 Metamyelocytes,Absolute DNR cells/L 0 Myelocytes,Absolute DNR cells/L 0 Promyelocytes,Absolute DNR cells/L 0 Lymphocytes,Absolute 1270 cells/L 850-3900 Monocytes,Absolute 210 cells/L 200-950 Eosinophils,Absolute 30 cells/L 15-500 Basophils,Absolute 10 cells/L 0-200 Blast Cells,Absolute DNR cells/L 0 Nucleated RBC,Absolute DNR cells/L 0 Total Neutrophils,% 69 % 38-80 Bands,% DNR % 0-10 Metamyelocytes,% DNR % Myelocytes,% DNR % Promyelocytes,% DNR % Total Lymphocytes,% 26 % 15-49 Monocytes,% 4 % 0-13 Eosinophils,% 1 % 0-8 Basophils,% 0 % 0-2 Blasts,% DNR % Nucleated RBC DNR /100WBC 0 RBC Morphology NORMAL Anisocytosis DNR Poikilocytosis DNR Microcytosis DNR Macrocytosis DNR Polychromasia DNR Hypochromasia DNR Target Cells DNR Basophilic Stippling DNR Comment DNR TSH & T4,Free 08/14/2006 [facility] TSH 0.21 mU/L Low 0.40-5.[address] [place] [address] [phone] T4,Free 1.4 ng/dL 0.8-1.8 TSH & T4,Free 06/26/2006 [facility] TSH 7.58 mU/L High 0.40-5.[address] [place] [address] [phone] T4,Free 1.1 ng/dL 0.8-1.8 1 FASTING 2 REFERENCE RANGES BELOW ARE APPLICABLE TO FEMALES FIRST TRIMESTER - 0.26 - 2.66 mIU/L SECOND TRIMESTER - 0.55 - 2.73 mIU/L THIRD TRIMESTER - 0.43 - 2.91 mIU/L 3 Reference range for high altitude clients: 18-30 mmol/L 4 GLUCOSE REFERENCE RANGE BASED ON FASTING SPECIMEN. 5 The upper reference limit for Creatinine is approximately 13% higher for people identified as -Portuguese. 6 LDL-C is now calculated using the Gael-Pulliam calculation, which is a validated novel method providing better accuracy than the Friedewald equation in the estimation of LDL-C. Gael SS et al.YIMI.2013;310(19):6927-8860 Desirable range <100 mg/dL for primary prevention; <70 mg/dL for patients with CHD or diabetic patients with >or=2 CHD risk factors. For additional information, please refer to http://education.[employer]/faq/WJL731(This link is being provided for informational/educational purposes only.) 7 For patients with diabetes plus 1 major ASCVD risk factor, treating to a non-HDL-C goal of <100 mg/dL (LDL-C of <70 mg/ dL) is considered a therapeutic option. 8 Relative blood cell counts (%) should be compared with absolute cell counts (cells/mcL). Relative counts may not be clinically meaningful if the absolute count of one or more cell type is decreased. Reference ranges for relative cell counts derived from: A Manual of Laboratory and Diagnostics Tests, 9th Ed, [employer], 2015. Pediatric Reference Intervals, 7th Ed, [employer], 2011. 9 LDL-C is now calculated using the Gael-Pulliam calculation, which is a validated novel method providing better accuracy than the Friedewald equation in the estimation of LDL-C. Gael SS et al.YIMI.2013;310(19):6908-1367 Desirable range <100 mg/dL for primary prevention; <70 mg/dL for patients with CHD or diabetic patients with >or=2 CHD risk factors. For additional information, please refer to http://[employer]/faq/OVU618(This link is being provided for informational/educational purposes only.) 10 For patients with diabetes plus 1 major ASCVD risk factor, treating to a non-HDL-C goal of <100 mg/dL (LDL-C of <70 mg/ dL) is considered a therapeutic option. 11 GLUCOSE REFERENCE RANGE BASED ON FASTING SPECIMEN. 12 The upper reference limit for Creatinine is approximately 13% higher for people identified as -Portuguese. 13 REFERENCE RANGES BELOW ARE APPLICABLE TO FEMALES FIRST TRIMESTER - 0.26 - 2.66 mIU/L SECOND TRIMESTER - 0.55 - 2.73 mIU/L THIRD TRIMESTER - 0.43 - 2.91 mIU/L 14 LDL-C is now calculated using the Gael-Pulliam calculation, which is a validated novel method providing better accuracy than the Friedewald equation in the estimation of LDL-C. Gael SS et al.YIMI.2013;310(19):3950-5987 (http://[employer]/faq/PVO950) Desirable range <100 mg/dL for patients with CHD or Diabetes and <70 mg/dL for Diabetic patients with known heart disease 15 For patients with diabetes plus 1 major ASCVD risk factor, treating to a non-HDL-C goal of <100 mg/dL (LDL-C of <70 mg/ dL) is considered a therapeutic option. 16 Relative blood cell counts (%) should be compared with absolute cell counts (cells/mcL). Relative counts may not be clinically meaningful if the absolute count of one or more cell type is decreased. Reference ranges for relative cell counts derived from: A Manual of Laboratory and Diagnostics Tests, 9th Ed, [employer], 2015. Pediatric Reference Intervals, 7th Ed, [facility] Press, 2011. 17 REFERENCE RANGES BELOW ARE APPLICABLE TO FEMALES FIRST TRIMESTER - 0.26 - 2.66 mIU/L SECOND TRIMESTER - 0.55 - 2.73 mIU/L THIRD TRIMESTER - 0.43 - 2.91 mIU/L 18 GLUCOSE REFERENCE RANGE BASED ON FASTING SPECIMEN. 19 The upper reference limit for Creatinine is approximately 13% higher for people identified as -Portuguese. 20 Relative blood cell counts (%) should be compared with absolute cell counts (cells/mcL). Relative counts may not be clinically meaningful if the absolute count of one or more cell type is decreased. Reference ranges for relative cell counts derived from: A Manual of Laboratory and Diagnostics Tests, 9th Ed, [employer], 2015. Pediatric Reference Intervals, 7th Ed, [employer], 2011. 21 GLUCOSE REFERENCE RANGE BASED ON FASTING SPECIMEN. 22 The upper reference limit for Creatinine is approximately 13% higher for people identified as -Portuguese. 23 REFERENCE RANGES BELOW ARE APPLICABLE TO FEMALES FIRST TRIMESTER - 0.26 - 2.66 mIU/L SECOND TRIMESTER - 0.55 - 2.73 mIU/L THIRD TRIMESTER - 0.43 - 2.91 mIU/L 24 The Gael-Pulliam calculation is a validated novel method that provides better accuracy than the Friedewald equation in the estimation of LDL-C, particularly when TG levels are 150-400 mg/dL and LDL-C levels are lower than 70 mg/dL. Reference: Gael HUGHES et al. Comparison of a Novel Method vs the Friedewald Equation for Estimating Low-Density Lipoprotein Cholesterol Levels From the Standard Lipid Profile. YIMI. 2013;310(19): 5207-7534. Desirable range <100 mg/dL for patients with CHD or Diabetes and <70 mg/dL for Diabetic patients with known heart disease 25 For patients with diabetes plus 1 major ASCVD risk factor, treating to a non-HDL-C goal of <100 mg/dL (LDL-C of <70 mg/ dL) is considered a therapeutic option. 26 GLUCOSE REFERENCE RANGE BASED ON FASTING SPECIMEN. 27 The upper reference limit for Creatinine is approximately 13% higher for people identified as -Portuguese. 28 Relative blood cell counts (%) should be compared with absolute cell counts (cells/mcL). Relative counts may not be clinically meaningful if the absolute count of one or more cell type is decreased. Reference ranges for relative cell counts derived from: A Manual of Laboratory and Diagnostics Tests, 9th Ed, [employer], 2015. Pediatric Reference Intervals, 7th Ed, [employer], 2011. 29 REFERENCE RANGES BELOW ARE APPLICABLE TO FEMALES FIRST TRIMESTER - 0.26 - 2.66 mIU/L SECOND TRIMESTER - 0.55 - 2.73 mIU/L THIRD TRIMESTER - 0.43 - 2.91 mIU/L 30 LDL-CHOLESTEROL RISK CATEGORY* GOAL VERY HIGH (E.G. DIABETES + CVD) <70 MG/DL HIGH (DIABETICS; CHD RISK EQUIVALENTS) <100 MG/DL MODERATELY HIGH (MULTIPLE(2+) RISK FACTORS) <130 MG/DL 0 TO 1 RISK FACTORS <160 MG/DL * NCEP REPORT. CIRCULATION 2004; 110: 227-239 31 Target for non-HDL cholesterol is 30 mg/dL higher than LDL cholesterol target. 32 THIS SPECIMEN WAS FOUND TO CONTAIN ANTI-THYROGLOBULIN ANTIBODIES. THE PRESENCE OF THESE AUTOANTIBODIES MAY CAUSE FALSELY LOW THYROGLOBULIN VALUES. IN TG-ANTIBODY POSITIVE PATIENTS THE THYROGLOBULIN BY [facility] SPECTROMETRY [TEST CODE #54589 THYROGLOBULIN,LC/ MS/MS; OR PANEL TEST CODE #10425 THYROID CANDER (THYROGLOBULIN) MONITORING] TEST IS RECOMMENDED BECAUSE IT HAS NO INTERFERENCE FROM AUTOANTIBODIES. 33 REFERENCE RANGES BELOW ARE APPLICABLE TO FEMALES FIRST TRIMESTER - 0.26 - 2.66 mIU/L SECOND TRIMESTER - 0.55 - 2.73 mIU/L THIRD TRIMESTER - 0.43 - 2.91 mIU/L 34 REFERENCE RANGES BELOW ARE APPLICABLE TO FEMALES FIRST TRIMESTER - 0.26 - 2.66 mIU/L SECOND TRIMESTER - 0.55 - 2.73 mIU/L THIRD TRIMESTER - 0.43 - 2.91 mIU/L 35 REFERENCE RANGES BELOW ARE APPLICABLE TO FEMALES FIRST TRIMESTER - 0.26 - 2.66 mIU/L SECOND TRIMESTER - 0.55 - 2.73 mIU/L THIRD TRIMESTER - 0.43 - 2.91 mIU/L 36 REFERENCE RANGES BELOW ARE APPLICABLE TO FEMALES FIRST TRIMESTER - 0.26 - 2.66 mIU/L SECOND TRIMESTER - 0.55 - 2.73 mIU/L THIRD TRIMESTER - 0.43 - 2.91 mIU/L 37 Relative blood cell counts (%) should be compared with absolute cell counts (cells/mcL). Relative counts may not be clinically meaningful if the absolute count of one or more cell type is decreased. Reference ranges for relative cell counts derived from: A Manual of Laboratory and Diagnostics Tests, 9th Ed, [employer], 2015. Pediatric Reference Intervals, 7th Ed, [facility] [employer], 2011. 38 GLUCOSE REFERENCE RANGE BASED ON FASTING SPECIMEN. 39 LDL-CHOLESTEROL RISK CATEGORY* GOAL VERY HIGH (E.G. DIABETES + CVD) <70 MG/DL HIGH (DIABETICS; CHD RISK EQUIVALENTS) <100 MG/DL MODERATELY HIGH (MULTIPLE(2+) RISK FACTORS) <130 MG/DL 0 TO 1 RISK FACTORS <160 MG/DL * NCEP REPORT. CIRCULATION 2004; 110: [phone] 40 Target for non-HDL cholesterol is 30 mg/dL higher than LDL cholesterol target. 41 REFERENCE RANGES BELOW ARE APPLICABLE TO FEMALES FIRST TRIMESTER - 0.26 - 2.66 mIU/L SECOND TRIMESTER - 0.55 - 2.73 mIU/L THIRD TRIMESTER - 0.43 - 2.91 mIU/L 42 GLUCOSE REFERENCE RANGE BASED ON FASTING SPECIMEN. 43 REFERENCE RANGES BELOW ARE APPLICABLE TO FEMALES FIRST TRIMESTER - 0.26 - 2.66 mIU/L SECOND TRIMESTER - 0.55 - 2.73 mIU/L THIRD TRIMESTER - 0.43 - 2.91 mIU/L 44 Relative blood cell counts (%) should be compared with absolute cell counts (cells/mcL). Relative counts may not be clinically meaningful if the absolute count of one or more cell type is decreased. Reference ranges for relative cell counts derived from: Pediatric Reference Intervals, 7th Ed, [employer], 2011. 45 REFERENCE RANGES BELOW ARE APPLICABLE TO FEMALES FIRST TRIMESTER - 0.26 - 2.66 mIU/L SECOND TRIMESTER - 0.55 - 2.73 mIU/L THIRD TRIMESTER - 0.43 - 2.91 mIU/L 46 GLUCOSE REFERENCE RANGE BASED ON FASTING SPECIMEN. 47 LDL-CHOLESTEROL RISK CATEGORY* GOAL VERY HIGH (E.G. DIABETES + CVD) <70 MG/DL HIGH (DIABETICS; CHD RISK EQUIVALENTS) <100 MG/DL MODERATELY HIGH (MULTIPLE(2+) RISK FACTORS) <130 MG/DL 0 TO 1 RISK FACTORS <160 MG/DL * NCEP REPORT. CIRCULATION 2004; 110: [phone] 48 Target for non-HDL cholesterol is 30 mg/dL higher than LDL cholesterol target. 49 REFERENCE RANGES BELOW ARE APPLICABLE TO FEMALES FIRST TRIMESTER - 0.26 - 2.66 mIU/L SECOND TRIMESTER - 0.55 - 2.73 mIU/L THIRD TRIMESTER - 0.43 - 2.91 mIU/L 50 LDL-CHOLESTEROL RISK CATEGORY* GOAL VERY HIGH (E.G. DIABETES + CVD) <70 MG/DL HIGH (DIABETICS; CHD RISK EQUIVALENTS) <100 MG/DL MODERATELY HIGH (MULTIPLE(2+) RISK FACTORS) <130 MG/DL 0 TO 1 RISK FACTORS <160 MG/DL * NCEP REPORT. CIRCULATION 2004; 110: [phone] 51 REFERENCE RANGES BELOW ARE APPLICABLE TO FEMALES FIRST TRIMESTER - 0.26 - 2.66 mIU/L SECOND TRIMESTER - 0.55 - 2.73 mIU/L THIRD TRIMESTER - 0.43 - 2.91 mIU/L 52 REFERENCE RANGES BELOW ARE APPLICABLE TO FEMALES FIRST TRIMESTER - 0.26 - 2.66 mIU/L SECOND TRIMESTER - 0.55 - 2.73 mIU/L THIRD TRIMESTER - 0.43 - 2.91 mIU/L 53 REFERENCE RANGES BELOW ARE APPLICABLE TO FEMALES FIRST TRIMESTER - 0.26 - 2.66 mIU/L SECOND TRIMESTER - 0.55 - 2.73 mIU/L THIRD TRIMESTER - 0.43 - 2.91 mIU/L 54 REFERENCE RANGES BELOW ARE APPLICABLE TO FEMALES FIRST TRIMESTER - 0.26 - 2.66 mIU/L SECOND TRIMESTER - 0.55 - 2.73 mIU/L THIRD TRIMESTER - 0.43 - 2.91 mIU/L 55 NO GROWTH 56 GLUCOSE REFERENCE RANGE BASED ON FASTING SPECIMEN. 57 REFERENCE RANGES BELOW ARE APPLICABLE TO FEMALES FIRST TRIMESTER - 0.26 - 2.66 mIU/L SECOND TRIMESTER - 0.55 - 2.73 mIU/L THIRD TRIMESTER - 0.43 - 2.91 mIU/L 58 REFERENCE RANGES BELOW ARE APPLICABLE TO FEMALES FIRST TRIMESTER - 0.26 - 2.66 mIU/L SECOND TRIMESTER - 0.55 - 2.73 mIU/L THIRD TRIMESTER - 0.43 - 2.91 mIU/L 59 THE CURRENT LOT OF FREE T4 REAGENT AVAILABLE FROM THE DIRECTOR OF MATH PRODUCES RESULTS THAT ARE APPROXIMATELY 9% HIGHER THAN PREVIOUS REAGENT LOTS. PLEASE INTERPRET THESE RESULTS ACCORDINGLY. 60 REFERENCE RANGES BELOW ARE APPLICABLE TO FEMALES FIRST TRIMESTER - 0.26 - 2.66 mIU/L SECOND TRIMESTER - 0.55 - 2.73 mIU/L THIRD TRIMESTER - 0.43 - 2.91 mIU/L 61 GLUCOSE REFERENCE RANGE BASED ON FASTING SPECIMEN. 62 REFERENCE RANGES BELOW ARE APPLICABLE TO FEMALES FIRST TRIMESTER - 0.20 - 4.70 mIU/L SECOND TRIMESTER - 0.30 - 4.10 mIU/L THIRD TRIMESTER - 0.40 - 2.70 mIU/L 63 REFERENCE RANGES BELOW ARE APPLICABLE TO FEMALES FIRST TRIMESTER - 0.20 - 4.70 mIU/L SECOND TRIMESTER - 0.30 - 4.10 mIU/L THIRD TRIMESTER - 0.40 - 2.70 mIU/L 64 REFERENCE RANGES BELOW ARE APPLICABLE TO FEMALES FIRST TRIMESTER - 0.20 - 4.70 mIU/L SECOND TRIMESTER - 0.30 - 4.10 mIU/L THIRD TRIMESTER - 0.40 - 2.70 mIU/L 65 GLUCOSE REFERENCE RANGE BASED ON FASTING SPECIMEN. 66 LDL-CHOLESTEROL RISK CATEGORY* GOAL VERY HIGH (E.G. DIABETES + CVD) <70 MG/DL HIGH (DIABETICS; CHD RISK EQUIVALENTS) <100 MG/DL MODERATELY HIGH (MULTIPLE(2+) RISK FACTORS) <130 MG/DL 0 TO 1 RISK FACTORS <160 MG/DL * NCEP REPORT. CIRCULATION 2004; 110: [phone] 67 REFERENCE RANGES BELOW ARE APPLICABLE TO FEMALES FIRST TRIMESTER - 0.20 - 4.70 mIU/L SECOND TRIMESTER - 0.30 - 4.10 mIU/L THIRD TRIMESTER - 0.40 - 2.70 mIU/L 68 25-OHD3 indicates both endogenous production and supplementation. 25-OHD2 is an indicator of exogenous sources such as diet or supplementation. Therapy is based on measurement of Total 25-OHD, with levels <20 ng/mL indicative of Vitamin D deficiency while levels between 20 ng/mL and 30 ng/mL suggest insufficiency. Optimal levels are > or=30ng/mL. 69 GLUCOSE REFERENCE RANGE BASED ON FASTING SPECIMEN. 70 LDL-CHOLESTEROL RISK CATEGORY* GOAL VERY HIGH (E.G. DIABETES + CVD) <70 MG/DL HIGH (DIABETICS; CHD RISK EQUIVALENTS) <100 MG/DL MODERATELY HIGH (MULTIPLE(2+) RISK FACTORS) <130 MG/DL 0 TO 1 RISK FACTORS <160 MG/DL * NCEP REPORT. CIRCULATION 2004; 110: [phone] 71 REFERENCE RANGES BELOW ARE APPLICABLE TO FEMALES FIRST TRIMESTER - 0.20 - 4.70 mIU/L SECOND TRIMESTER - 0.30 - 4.10 mIU/L THIRD TRIMESTER - 0.40 - 2.70 mIU/L 72 REFERENCE RANGES BELOW ARE APPLICABLE TO FEMALES FIRST TRIMESTER - 0.20 - 4.70 mIU/L SECOND TRIMESTER - 0.30 - 4.10 mIU/L THIRD TRIMESTER - 0.40 - 2.70 mIU/L 73 GLUCOSE REFERENCE RANGE BASED ON FASTING SPECIMEN. 74 LDL-CHOLESTEROL RISK CATEGORY* GOAL VERY HIGH (E.G. DIABETES + CVD) <70 MG/DL HIGH (DIABETICS; CHD RISK EQUIVALENTS) <100 MG/DL MODERATELY HIGH (MULTIPLE(2+) RISK FACTORS) <130 MG/DL 0 TO 1 RISK FACTORS <160 MG/DL * NCEP REPORT. CIRCULATION 2004; 110: [phone] 75 TSH REFERENCE RANGE: FIRST TRIMESTER - 0.20 - 4.70 mIU/L SECOND TRIMESTER - 0.30 - 4.10 mIU/L THIRD TRIMESTER - 0.40 - 2.70 mIU/L 76 TSH REFERENCE RANGE: FIRST TRIMESTER - 0.20 - 4.70 mU/L SECOND TRIMESTER - 0.30 - 4.10 mU/L THIRD TRIMESTER - 0.40 - 2.70 mU/L 77 LDL-CHOLESTEROL RISK CATEGORY* GOAL VERY HIGH (E.G. DIABETES + CVD) <70 MG/DL HIGH (DIABETICS; CHD RISK EQUIVALENTS) <100 MG/DL MODERATELY HIGH (MULTIPLE(2+) RISK FACTORS) <130 MG/DL 0 TO 1 RISK FACTORS <160 MG/DL * NCEP REPORT. CIRCULATION 2004; 110: [phone] 78 TSH REFERENCE RANGE: FIRST TRIMESTER - 0.20 - 4.70 mU/L SECOND TRIMESTER - 0.30 - 4.10 mU/L THIRD TRIMESTER - 0.40 - 2.70 mU/L 79 GLUCOSE REFERENCE RANGE BASED ON FASTING SPECIMEN. 80 TSH REFERENCE RANGE: FIRST TRIMESTER - 0.20 - 4.70 mU/L SECOND TRIMESTER - 0.30 - 4.10 mU/L THIRD TRIMESTER - 0.40 - 2.70 mU/L 81 TSH REFERENCE RANGE: FIRST TRIMESTER - 0.20 - 4.70 mU/L SECOND TRIMESTER - 0.30 - 4.10 mU/L THIRD TRIMESTER - 0.40 - 2.70 mU/L 82 Specimen: [id number] - TEST: CSFCC CSF CELL COUNT FROM: CSF Tube #1 TEST : CSFCC Specimen: [id number] - TEST: CSFCC CSF CELL COUNT FROM: CSF Tube #1 TEST : CSFCC 83 Specimen: [id number] - TEST: CSFCC CSF CELL COUNT FROM: CSF Tube #4 TEST : CSFCC 84 QNS 85 QNS 86 QNS 87 QNS FOR CX 88 PER ELBERT 89 FASTING 90 TSH REFERENCE RANGE: FIRST TRIMESTER - 0.20 - 4.70 mU/L SECOND TRIMESTER - 0.30 - 4.10 mU/L THIRD TRIMESTER - 0.40 - 2.70 mU/L 91 HDL REFERENCE RANGES ADULTS (20 YEARS & OLDER) DESIRABLE: > OR=60 MG/DL HIGHER RISK: <40 MG/DL 92 LDL-CHOLESTEROL RISK CATEGORY* GOAL VERY HIGH (E.G. DIABETES + CVD) <70 MG/DL HIGH (DIABETICS; CHD RISK EQUIVALENTS) <100 MG/DL MODERATELY HIGH (MULTIPLE(2+) RISK FACTORS) <130 MG/DL 0 TO 1 RISK FACTORS <160 MG/DL * NCEP REPORT. CIRCULATION 2004; 110: [phone] 93 TSH REFERENCE RANGE: FIRST TRIMESTER - 0.30 - 4.50 mU/L SECOND TRIMESTER - 0.50 - 4.60 mU/L THIRD TRIMESTER - 0.80 - 5.20 mU/L 94 TSH REFERENCE RANGE: FIRST TRIMESTER - 0.30 - 4.50 mU/L SECOND TRIMESTER - 0.50 - 4.60 mU/L THIRD TRIMESTER - 0.80 - 5.20 mU/L 95 TSH REFERENCE RANGE: FIRST TRIMESTER - 0.30 - 4.50 mU/L SECOND TRIMESTER - 0.50 - 4.60 mU/L THIRD TRIMESTER - 0.80 - 5.20 mU/L Procedures Date Code Description Status 02/27/2017 56516 Non-Invcorrotid/Comp /Bilat Study Completed 02/27/2017 85724 Echocardiography Completed 02/15/2016 45842 Bone Density Completed 02/15/2016 [id number] Bone Mineral Density Test Completed 02/13/2016 33093 EKG-Tracing & Report Completed 07/27/2015 [id number] Mammogram Completed 12/02/2014 08276 EKG-Tracing & Report Completed 12/09/2013 25652 EKG-Tracing & Report Completed 12/09/2013 94604 Bone Density Completed 12/07/2013 69671 Echocardiography Completed 06/29/2013 12091 EKG-Tracing & Report Completed 06/26/2006 05082 EKG-Tracing & Report Completed Encounters Type Date Location Provider Dx Diagnosis Office Visit 08/03/2018 Main Office Candie Rangel M.D. Z12.31 Encntr screen 2:45p mammogram for malignant neoplasm of breast E03.9 Hypothyroidism, unspecified J01.90 Acute sinusitis, unspecified Office Visit 04/27/2018 1:30p Main Office Candie Rangel, N39.0 Urinary tract M.D. infection, site not specified E03.9 Hypothyroidism, unspecified Office Visit 01/12/2018 3:15p Main Office Candie Rangel, E03.9 Hypothyroidism, M.D. unspecified G43.911 Migraine, unspecified, intractable, with status migrainosus Office Visit 09/23/2017 2:45p Main Office Candie Rangel J01.90 Acute sinusitis, M.D. unspecified Office Visit 07/08/2017 3:00p Main Office Candie Rangel G43.911 Migraine, M.D. unspecified, intractable, with status migrainosus E03.9 Hypothyroidism, unspecified Office Visit 03/11/2017 2:45p Main Office Candie Rangel G43.911 Migraine, M.D. 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 unspecified G43.911 Migraine, unspecified, intractable, with status migrainosus Office Visit 07/01/2016 10:30a Main Office Candie Rangel, E03.9 Hypothyroidism, M.D. unspecified G43.911 Migraine, unspecified, intractable, with status migrainosus Office Visit 02/27/2016 11:00a Main Office Candie Rangel, E03.9 Hypothyroidism, M.D. unspecified G43.911 Migraine, unspecified, intractable, with status migrainosus Office Visit 11/20/2015 10:15a Main Office Candie Rangel, E03.9 Hypothyroidism, M.D. unspecified G43.911 Migraine, unspecified, intractable, with status migrainosus Office Visit 08/15/2015 11:30a Main Office Candie Rangel, E03.9 Hypothyroidism, M.D. unspecified Office Visit 07/11/2015 10:00a Main Office Candie Rangel, E03.9 Hypothyroidism, M.D. unspecified G43.911 Migraine, unspecified, intractable, with status migrainosus E78.5 Hyperlipidemia, unspecified R94.4 Abnormal results of kidney function studies Office Visit 04/10/2015 10:30a Main Office Candie Rangel, 244.90 Hypothyroidism M.D. (Aquired) 346.93 Migraine Unspecified, W/Intractable Migraine Office Visit 12/07/2014 10:00a Main Office Candie Rangel, 244.90 Hypothyroidism M.D. (Aquired) 346.93 Migraine Unspecified, W/Intractable Migraine Office Visit 08/09/2014 10:00a Main Office Candie Rangel, 244.90 Hypothyroidism M.D. (Aquired) 346.93 Migraine Unspecified, W/Intractable Migraine Office Visit 06/16/2014 12:15p Main Office Candie Rangel, 244.90 Hypothyroidism M.D. (Aquired) Office Visit 04/20/2014 10:15a Main Office Candie Rangel, 244.90 Hypothyroidism M.D. (Aquired) 346.93 Migraine Unspecified, W/Intractable Migraine Office Visit 12/20/2013 10:30a Main Office Candie Rangel, 244.90 Hypothyroidism M.D. (Aquired) 346.93 Migraine Unspecified, W/Intractable Migraine Office Visit 08/30/2013 10:45a Main Office Candie Rangel, 346.93 Migraine Unspecified, M.D. W/Intractable Migraine Office Visit 07/06/2013 10:15a Main Office Candie Rangel, 346.93 Migraine Unspecified, M.D. W/Intractable Migraine 244.90 Hypothyroidism (Aquired) Office Visit 05/11/2013 1:30p Main Office Candie Rangel, 346.93 Migraine Unspecified, M.D. W/Intractable Migraine Office Visit 01/12/2013 11:30a Main Office Candie Rangel, 473.90 Sinusitis M.D. Office Visit 12/30/2012 10:00a Main Office Candie Rangel, 244.90 Hypothyroidism M.D. (Aquired) 346.93 Migraine Unspecified, W/Intractable Migraine Office Visit 07/01/2012 10:00a Main Office Candie Rangel, 244.90 Hypothyroidism M.D. (Aquired) 715.90 Degenerative Joint Disease Genlzd Or Localzd Site Unspec 346.93 Migraine Unspecified, W/Intractable Migraine Office Visit 02/13/2012 10:15a Main Office Candie Rangel, 244.90 Hypothyroidism M.D. (Aquired) 715.90 Degenerative Joint Disease Genlzd Or Localzd Site Unspec Office Visit 11/14/2011 11:15a Main Office Candie Rangel, 244.90 Hypothyroidism M.D. (Aquired) Office Visit 11/05/2011 11:45a Main Office Candie Rangel, 473.90 Sinusitis M.D. 346.93 Migraine Unspecified, W/Intractable Migraine 244.90 Hypothyroidism (Aquired) Office Visit 05/23/2011 11:15a Main Office Candie Rangel, 244.90 Hypothyroidism M.D. (Aquired) 346.93 Migraine Unspecified, W/Intractable Migraine Office Visit 02/20/2011 11:15a Main Office Candie Rangel, 346.93 Migraine Unspecified, M.D. W/Intractable Migraine 244.90 Hypothyroidism (Aquired) Office Visit 11/21/2010 10:15a Main Office Candie Rangel, 244.90 Hypothyroidism M.D. (Aquired) 346.93 Migraine Unspecified, W/Intractable Migraine Office Visit 05/30/2010 11:00a Main Office Candie Rangel, 346.93 Migraine Unspecified, M.D. W/Intractable Migraine 244.90 Hypothyroidism (Aquired) Office Visit 11/29/2009 11:00a Main Office Candie Rangel, 244.90 Hypothyroidism M.D. (Aquired) 847.0 Sprains & Strains Neck Office Visit 05/31/2009 10:00a Main Office Candie Rangel, 244.90 Hypothyroidism M.D. (Aquired) 847.0 Sprains & Strains Neck Office Visit 03/01/2009 10:00a Main Office Candie Rangel 244.90 Hypothyroidism M.D. (Aquired) 847.0 Sprains & Strains Neck 346.93 Migraine Unspecified, W/Intractable Migraine Office Visit 11/30/2008 2:30p Main Office Candie Rangel M.D. 473.90 Sinusitis 840.9 Sprains & Strains Shoulder & Upper Arm Unspec Office Visit 08/24/2008 10:00a Main Office Candie Rangel 244.90 Hypothyroidism M.D. (Aquired) 847.0 Sprains & Strains Neck 346.93 Migraine Unspecified, W/Intractable Migraine Office Visit 05/10/2008 11:30a Main Office Candie Rangel, 599.0 UTI Urinary Tract M.D. Infection Site Not Spec Office Visit 02/18/2008 10:15a Main Office Candie Rangel 244.90 Hypothyroidism M.D. (Aquired) Office Visit 12/10/2007 10:15a Main Office Candie Rangel 847.0 Sprains & Strains M.D. Neck Office Visit 08/20/2007 10:00a Main Office Candie Rangel 244.90 Hypothyroidism M.D. (Aquired) 346.80 Migraine Other W/O Intractable Office Visit 02/17/2007 11:00a Main Office Candie Rangel 346.80 Migraine Other W/O M.D. Intractable 244.90 Hypothyroidism (Aquired) Office Visit 08/19/2006 10:15a Main Office Candie Rangel M.D. 473.90 Sinusitis 244.90 Hypothyroidism (Aquired) Office Visit 07/03/2006 10:00a Main Office Candie Rangel 244.90 Hypothyroidism M.D. (Aquired) 346.80 Migraine Other W/O Intractable Office Visit 12/24/2005 10:00a Main Office Candie Rangel M.D. 473.0 Sinusitis Chronic Maxillary 244.90 Hypothyroidism (Aquired) Office Visit 12/09/2005 10:30a Main Office Candie Rangel 473.90 Sinusitis M.D. Office Visit 10/16/2005 3:15p Main Office Candie Rangel 842.02 Sprains & Strains M.D. Wrist & Hand Radiocarpal (Joint)(Ligament) Office Visit 06/26/2005 10:00a Main Office Candie Rangel, 780.71 Chronic Fatigue M.D. Syndrome 244.90 Hypothyroidism (Aquired) Office Visit 05/21/2005 10:00a Main Office Candie Rangel M.D. 780.71 Chronic Fatigue Syndrome 244.90 Hypothyroidism (Aquired) Office Visit 11/21/2004 10:30a Main Office Candie Rangel 244.90 Hypothyroidism M.D. (Aquired) Office Visit 08/15/2004 3:15p Main Office Candie Rangel 244.90 Hypothyroidism M.D. (Aquired) Office Visit 05/16/2004 3:30p Main Office Candie Rangel 244.90 Hypothyroidism M.DNeil (Aquired) 780.71 Chronic Fatigue Syndrome 599.00 UTI / Urosepsis Infection Plan of Treatment Future Appointment(s):02/15/2019 3:00 pm - Candie Rangel M.D. at Main Bltapi8403/2019 3:30 pm - Ultrasound at Main Knkjtf4002/12/2019 8:00 am - Nurse at Main Quseha0911/02/2018 - Candie Rangel M.D.E03.9 Hypothyroidism, unspecifiedComments: monitor TSH regularly (2x yearly) call for hot or cold intolerance sweats or palpitationsFollow up:Followup:. (Follow up)G43.911 Migraine, unspecified, intractable, with status migrainosusComments:meds as directed, discussed trigger avoidance uses hydrocodone sparringly for pain management uses hydrocodone rarely for severe migraines
--- OUTSIDE RECORDS SUMMARY | 2018-11-25 08:32 | XMS REPORT | Continuity of Care Document ---
:1965 External Reference #:[id number] Author Name Eva Mccrary Care Team Providers Name Role Phone Candie Rangel MD Primary Care Physician Unavailable Payers Type Date Identification Numbers Payment Provider Subscriber Policy Number: [id number] Poli Romero PayID: [id number] [place] [address] Advance Directives Description No Information Available Problems [...] CPT Code Status Date Vaccine Lot # [id number] Given 10/06/1989 Tetanus And Diptheria Toxiods TD-146 [...] 0.36 mIU/L Low 0.40-4.50 1, [address] [place] [address] [phone] T4,Free 0.7 ng/dL Low 0.8-1.8 CBC 10/26/2018 [facility] WBC 3.9 3.8-10.8 (H/H,RBC,Indices,WBC,PLT) [address] thous/[place] [address] [phone] RBC 4.32 mill/L 3.80-5.10 Hemoglobin 12.9 g/dL 11.7-15.5 Hematocrit 38.0 % 35.0-45.0 MCV 88.2 FL 80.0-100.0 MCH 29.9 pg 27.0-33.0 MCHC 33.9 g/dL 32.0-36.0 RDW 13.5 % 11.0-15.0 Platelet Count 232 thous/L 140-400 MPV 10.3 FL 7.5-12.5 Basic Metabolic Panel 10/26/2018 [facility] Sodium 142 mmol/L 135-[address] [place] [address] [phone] Potassium 3.6 mmol/L 3.5-5.3 Chloride 107 mmol/L 98-110 Carbon Dioxide 29 mmol/L 20-32 3 Calcium 9.3 mg/dL 8.6-10.4 Glucose 79 mg/dL 65-99 4 Urea Nitrogen (BUN) 15 mg/dL 7-25 Creatinine 1.00 mg/dL 0.50-1.05 5 BUN/Creatinine Ratio 14.6 6-22 Egfr Non-Afr. Scottish 65 ML/MIN/1.73M2 > Or=60 Egfr 75 ML/MIN/1.73M2 > Or=60 Lipid Panel 10/26/2018 [facility] Cholesterol 187 mg/dL <199 [address] [facility] [place] [address] [phone] HDL Cholesterol 62 mg/dL >50 Cholesterol/HDL Ratio 3.0 CALC <5.0 LDL Chol,Calculated 109 mg/dL High 0-100 6 Triglycerides 71 mg/dL <150 Non-HDL Cholesterol 126 mg/dL <130 7 CBC W/ Diff & PLT 04/21/2018 [facility] WBC 10.7 thous/L 3.8-10.8 [address] [facility] [place] [address] [phone] RBC 4.26 mill/L 3.80-5.10 Hemoglobin 12.9 g/dL 11.7-15.5 Hematocrit 39.3 % 35.0-45.0 MCV 92.4 FL 80.0-100.0 MCH 30.4 pg 27.0-33.0 MCHC 32.9 g/dL 32.0-36.0 RDW 13.6 % 11.0-15.0 Platelet Count 226 thous/L 140-400 Platelet Sufficiency PENDING MPV 10.5 FL 7.5-12.5 Neutrophils,Absolute 8660 cells/L High [phone] Bands,Absolute PENDING Metamyelocytes,Absolute PENDING Myelocytes,Absolute PENDING Promyelocytes,Absolute [...] [facility] Cholesterol 178 mg/dL <199 [address] [place], [place] [address] [phone] HDL Cholesterol 69 mg/dL >50 Cholesterol/HDL Ratio 2.6 CALC <5.0 LDL Chol,Calculated 95 mg/dL 0-100 9 Triglycerides 53 mg/dL <150 Non-HDL Cholesterol 109 mg/dL <130 10 Basic Metabolic Panel 04/21/2018 [facility] Sodium 140 mmol/L 135-146 6 [place], [place] [id number] [phone] Potassium 4.3 mmol/L 3.5-5.3 Chloride 105 mmol/L 98-110 Carbon Dioxide 25 mmol/L 20-31 Calcium 9.7 mg/dL 8.6-10.4 Glucose 94 mg/dL 65-99 11 Urea Nitrogen (BUN) 19 mg/dL 7-25 Creatinine 1.03 mg/dL 0.50-1.05 12 BUN/Creatinine Ratio 18.7 6-22 Egfr Non-Afr. Scottish 63 ML/MIN/1.73M2 > Or=60 Egfr 73 ML/MIN/1.73M2 > Or=60 TSH & T4,Free 04/21/2018 [facility] TSH <0.01 mIU/L Low 0.40-4.[address] [place], [place] [id number] [phone] T4,Free 1.6 ng/dL 0.8-1.8 Lipid Panel 01/06/2018 [facility] Cholesterol 160 mg/dL <[address] [place], [place] [id number] [phone] HDL Cholesterol 57 mg/dL >50 Cholesterol/HDL Ratio 2.8 CALC <5.0 LDL Chol,Calculated 89 mg/dL 0-100 14 Triglycerides 48 mg/dL <150 Non-HDL Cholesterol 104 mg/dL <130 15 CBC W/ Diff & PLT 01/06/2018 [facility] WBC 5.6 thous/L 3.8-10.[address] [place], [place] [id number] [phone] RBC 4.04 mill/L 3.80-5.10 Hemoglobin 12.2 g/dL 11.7-15.5 Hematocrit 37.5 % 35.0-45.0 MCV 92.7 FL 80.0-100.0 MCH 30.2 pg 27.0-33.0 MCHC 32.6 g/dL 32.0-36.0 RDW 13.6 % 11.0-15.0 Platelet Count 269 thous/L 140-400 Platelet Sufficiency PENDING MPV 10.4 FL 7.5-12.5 Neutrophils,Absolute 3000 cells/L [phone] Bands,Absolute PENDING Metamyelocytes,Absolute PENDING Myelocytes,Absolute PENDING Promyelocytes,Absolute [...] TSH 0.01 mIU/L Low 0.40-4.50 17 [address] [facility] [place], [place] [id number] [phone] T4,Free 1.7 ng/dL 0.8-1.8 Basic Metabolic Panel 01/06/2018 [facility] Sodium 141 mmol/L 135-[address] [place], [place] [address] [phone] Potassium 4.8 mmol/L 3.5-5.3 Chloride 108 mmol/L 98-110 Carbon Dioxide 28 mmol/L 20-31 Calcium 9.6 mg/dL 8.6-10.4 Glucose 103 mg/dL High 65-99 18 Urea Nitrogen (BUN) 21 mg/dL 7-25 Creatinine 0.96 mg/dL 0.50-1.05 19 BUN/Creatinine Ratio 21.4 6-22 Egfr Non-Afr. Scottish 68 ML/MIN/1.73M2 > Or=60 Egfr 79 ML/MIN/1.73M2 > Or=60 CBC W/ Diff & PLT 06/30/2017 [facility] WBC 4.8 thous/L 3.8-10.8 [address] [facility]. [place], [place] [id number] [phone] RBC 4.25 mill/L 3.80-5.10 Hemoglobin 12.9 g/dL 11.7-15.5 Hematocrit 39.1 % 35.0-45.0 MCV 92.0 FL 80.0-100.0 MCH 30.3 pg 27.0-33.0 MCHC 32.9 g/dL 32.0-36.0 RDW 13.9 % 11.0-15.0 Platelet Count 259 thous/L 140-400 Platelet Sufficiency PENDING MPV 10.7 FL 7.5-12.5 Neutrophils,Absolute 2410 cells/L [phone] Bands,Absolute PENDING Metamyelocytes,Absolute PENDING Myelocytes,Absolute PENDING Promyelocytes,Absolute [...] [facility] Sodium 139 mmol/L 135-[address] [place] [address] [phone] Potassium 4.4 mmol/L 3.5-5.3 Chloride 107 mmol/L 98-110 Carbon Dioxide 25 mmol/L 20-31 Calcium 9.0 mg/dL 8.6-10.4 Glucose 93 mg/dL 65-99 21 Urea Nitrogen 19 mg/dL 7-25 Creatinine 0.95 mg/dL 0.50-1.05 22 BUN/Creatinine Ratio 19.7 6-22 Egfr Non-Afr. Scottish 70 ML/MIN/1.73M2 > Or=60 Egfr 81 ML/MIN/1.73M2 > Or=60 TSH & T4,Free 06/30/2017 [facility] TSH 0.02 mIU/L Low 0.40-4.50 23 [address] [place] [address] [phone] T4,Free 1.7 ng/dL 0.8-1.8 Lipid Panel 06/30/2017 [facility] Cholesterol 176 mg/dL <199 [address] [facility] [place] [address] [phone] HDL Cholesterol 57 mg/dL >50 Cholesterol/HDL Ratio 3.1 CALC <5.0 LDL Chol,Calculated 103 mg/dL High <100 24 Triglycerides 69 mg/dL <150 Non-HDL Cholesterol 120 mg/dL <130 25 Basic Metabolic Panel 02/26/2017 [facility] Sodium 138 mmol/L 135-146 [address] [facility] [place] [address] [phone] Potassium 4.4 mmol/L 3.5-5.3 Chloride 102 mmol/L 98-110 Carbon Dioxide 29 mmol/L 20-31 Calcium 9.8 mg/dL 8.6-10.4 Glucose 118 mg/dL High 65-99 26 Urea Nitrogen 23 mg/dL 7-25 Creatinine 0.98 mg/dL 0.50-1.05 27 BUN/Creatinine Ratio 23.9 High 6-22 Egfr Non-Afr. Scottish 67 ML/MIN/1.73M2 > Or=60 Egfr 78 ML/MIN/1.73M2 > Or=60 CBC W/ Diff & PLT 02/26/2017 [facility] WBC 5.1 thous/L 3.8-10.[address] [place] [address] [phone] RBC 4.42 mill/L 3.80-5.10 Hemoglobin 13.0 g/dL 11.7-15.5 Hematocrit 40.3 % 35.0-45.0 MCV 91.1 FL 80.0-100.0 MCH 29.4 pg 27.0-33.0 MCHC 32.3 g/dL 32.0-36.0 RDW 12.8 % 11.0-15.0 Platelet Count 323 thous/L 140-400 Platelet Sufficiency PENDING MPV 9.6 FL 7.5-12.5 Neutrophils,Absolute 2830 cells/L 6145-5048 Bands,Absolute PENDING Metamyelocytes,Absolute PENDING Myelocytes,Absolute PENDING Promyelocytes,Absolute [...] TSH <0.01 mIU/L Low 0.40-4.[address] [place] [address] [phone] T4,Free 1.6 ng/dL 0.8-1.8 Lipid Panel 02/26/2017 [facility] Cholesterol 183 mg/dL 125-[address] [place] [address] [phone] HDL Cholesterol 57 mg/dL > Or=46 Cholesterol/HDL Ratio 3.2 < Or=5.0 LDL Chol,Calculated 113 mg/dL <130 30 Triglycerides 65 mg/dL <150 Non-HDL Cholesterol 126 mg/dL 31 Thyroid 12/24/2016 [facility] Thyroglobulin 9 IU/mL High <Or=1 32 Peroxidase & [address] [place] [address] [phone] Thyroid Peroxidase AB 40 IU/mL High <9 TSH & T4,Free 12/24/2016 [facility] TSH 0.03 mIU/L Low 0.40-4.[address] [place] [address] [phone] T4,Free 1.9 ng/dL High 0.8-1.8 TSH & T4,Free 11/11/2016 [facility] TSH 18.93 mIU/L High 0.40-4.[address] [place] [address] [phone] T4,Free 0.7 ng/dL Low 0.8-1.8 TSH & T4,Free 06/25/2016 [facility] TSH 11.32 mIU/L High 0.40-4.[address] [place] [address] [phone] T4,Free 0.7 ng/dL Low 0.8-1.8 TSH & T4,Free 02/13/2016 [facility] TSH 15.79 mIU/L High 0.40-4.[address] [place] [address] [phone] T4,Free 0.8 ng/dL 0.8-1.8 CBC W/ Diff & PLT 02/13/2016 [facility] WBC 7.0 thous/L 3.8-10.8 [address] [place] [address] [phone] RBC 4.12 mill/L 3.80-5.10 Hemoglobin 12.6 g/dL 11.7-15.5 Hematocrit 39.1 % 35.0-45.0 MCV 94.8 FL 80.0-100.0 MCH 30.5 pg 27.0-33.0 MCHC 32.2 g/dL 32.0-36.0 RDW 14.4 % 11.0-15.0 Platelet Count 232 thous/L 140-400 Platelet Sufficiency NORMAL Normal MPV 10.3 FL 7.5-11.5 Neutrophils,Absolute 4790 cells/L 0681-8935 Bands,Absolute PENDING Metamyelocytes,Absolute PENDING Myelocytes,Absolute PENDING Promyelocytes,Absolute [...] [facility] Sodium 138 mmol/L 135-146 [address] [place] [address] [phone] Potassium 4.6 mmol/L 3.5-5.3 Chloride 104 mmol/L 98-110 Carbon Dioxide 25 mmol/L 19-30 Calcium 9.5 mg/dL 8.6-10.2 Glucose 76 mg/dL 65-99 38 Urea Nitrogen 18 mg/dL 7-25 Creatinine 1.13 mg/dL High 0.50-1.10 BUN/Creatinine Ratio 16.3 6-22 Lipid Panel 02/13/2016 [facility] Cholesterol 217 mg/dL High 125-[address] [place] [address] [phone] HDL Cholesterol 81 mg/dL > Or=46 Cholesterol/HDL Ratio 2.7 < Or=5.0 LDL Chol,Calculated 125 mg/dL <130 39 Triglycerides 53 mg/dL <150 Non-HDL Cholesterol 136 mg/dL 40 TSH & T4,Free 11/13/2015 [facility] TSH 0.03 mIU/L Low 0.40-4.50 41 [address] [facility] [place] [address] [phone] T4,Free 1.3 ng/dL 0.8-1.8 BMP W/O Egfr 08/08/2015 [facility] Sodium 139 mmol/L 135-[address] [place] [address] [phone] Potassium 4.4 mmol/L 3.5-5.3 Chloride 104 mmol/L 98-110 Carbon Dioxide 28 mmol/L 19-30 Calcium 9.6 mg/dL 8.6-10.2 Glucose 91 mg/dL 65-99 42 Urea Nitrogen 14 mg/dL 7-25 Creatinine 1.00 mg/dL 0.50-1.10 BUN/Creatinine Ratio 13.8 6-22 TSH & T4,Free 08/08/2015 [facility] TSH 0.07 mIU/L Low 0.40-4.[address] [place] [address] [phone] T4,Free 1.4 ng/dL 0.8-1.8 CBC W/ Diff & PLT 07/04/2015 [facility] WBC 3.9 thous/L 3.8-10.8 [address] [facility] [place] [address] [phone] RBC 4.09 mill/L 3.80-5.10 Hemoglobin 12.8 g/dL 11.7-15.5 Hematocrit 39.1 % 35.0-45.0 MCV 95.5 FL 80.0-100.0 MCH 31.3 pg 27.0-33.0 MCHC 32.7 g/dL 32.0-36.0 RDW 14.4 % 11.0-15.0 Platelet Count 236 thous/L 140-400 Platelet Sufficiency PENDING MPV 10.2 FL 7.5-11.5 Neutrophils,Absolute 2420 cells/L 4462-3512 Bands,Absolute PENDING Metamyelocytes,Absolute PENDING Myelocytes,Absolute PENDING Promyelocytes,Absolute [...] TSH 5.44 mIU/L High 0.40-4.50 45 [address] [place], [place] [id number] [phone] T4,Free 1.2 ng/dL 0.8-1.8 BMP W/O Egfr 07/04/2015 [facility] Sodium 138 mmol/L 135-146 [address] [place], [place] [address] [phone] Potassium 4.7 mmol/L 3.5-5.3 Chloride 102 mmol/L 98-110 Carbon Dioxide 26 mmol/L 19-30 Calcium 10.3 mg/dL High 8.6-10.2 Glucose 87 mg/dL 65-99 46 Urea Nitrogen 22 mg/dL 7-25 Creatinine 1.28 mg/dL High 0.50-1.10 BUN/Creatinine Ratio 16.9 6-22 Lipid Panel 07/04/2015 [facility] Cholesterol 212 mg/dL High 125-[address] [place] [address] [phone] HDL Cholesterol 73 mg/dL > Or=46 Cholesterol/HDL Ratio 2.9 < Or=5.0 LDL Chol,Calculated 124 mg/dL <130 47 Triglycerides 74 mg/dL <150 Non-HDL Cholesterol 139 mg/dL 48 TSH & T4,Free 11/30/2014 [facility] TSH 3.23 mIU/L 0.40-4.[address] [place] [address] [phone] T4,Free 1.2 ng/dL 0.8-1.8 Laboratory test 11/30/2014 [facility] Iron,Total 230 g/dL High 40-190 finding [address] [facility] [place] [address] [phone] Direct LDL 121 mg/dL <130 50 TSH & T4,Free 08/03/2014 [facility] TSH 3.59 mIU/L 0.40-4.50 51 [address] [facility] [place] [address] [phone] T4,Free 0.8 ng/dL 0.8-1.8 Laboratory test 08/03/2014 [facility] Iron,Total 164 g/dL 40-190 finding [address] [facility] [place] [address] [phone] TSH & T4,Free 06/17/2014 [facility] TSH 0.01 mIU/L Low 0.40-4.50 52 [address] [facility] [place] [address] [phone] T4,Free 1.8 ng/dL 0.8-1.8 TSH & T4,Free 04/13/2014 [facility] TSH 0.19 mIU/L Low 0.40-4.50 53 [address] [facility] [place] [address] [phone] T4,Free 1.2 ng/dL 0.8-1.8 TSH & T4,Free 12/09/2013 [facility] TSH 9.25 mIU/L High 0.40-4.50 54 [address] [facility] [place] [address] [phone] T4,Free 0.9 ng/dL 0.8-1.8 Culture,Urine,Voided 07/06/2013 [facility] Source URINE-CC [address] [place] [address] [phone] Final Report (SEE NOTE) 55 BMP W/O Egfr 06/29/2013 [facility] Sodium 138 mmol/L 135-[address] [place] [address] [phone] Potassium 4.4 mmol/L 3.5-5.3 Chloride 106 mmol/L 98-110 Carbon Dioxide 25 mmol/L 19-30 Calcium 9.6 mg/dL 8.6-10.2 Glucose 80 mg/dL 65-99 56 Urea Nitrogen 13 mg/dL 7-25 Creatinine 1.01 mg/dL 0.50-1.10 BUN/Creatinine Ratio 12.4 6-22 CBC W/ Diff & PLT 06/29/2013 [facility] WBC 4.1 thous/L 3.8-10.[address] [place] [address] [phone] RBC 3.83 mill/L 3.80-5.10 Hemoglobin 12.1 g/dL 11.7-15.5 Hematocrit 35.8 % 35.0-45.0 MCV 93.3 FL 80.0-100.0 MCH 31.5 pg 27.0-33.0 MCHC 33.7 g/dL 32.0-36.0 RDW 13.5 % 11.0-15.0 Platelet Count 223 thous/L 140-400 Neutrophils,Absolute 2480 cells/L 6713-8688 Lymphocytes,Absolute 1320 cells/L 850-3900 Monocytes,Absolute 260 cells/L 200-950 Eosinophils,Absolute 50 cells/L 15-500 Basophils,Absolute 30 cells/L 0-200 Total Neutrophils,% 60 % 38-80 Total Lymphocytes,% 32 % 15-49 Monocytes,% 6 % 0-13 Eosinophils,% 1 % 0-8 Basophils,% 1 % 0-2 TSH & T4,Free 06/29/2013 [facility] TSH 1.42 mIU/L 0.40-4.[address] [place] [address] [phone] T4,Free 1.3 ng/dL 0.8-1.8 TSH & T4,Free 12/23/2012 [facility] TSH 2.78 mIU/L 0.40-4.[address] [place], [place] [address] [phone] T4,Free 1.0 ng/dL 0.8-1.8 59 TSH & T4,Free 06/24/2012 [facility] TSH 0.14 mIU/L Low 0.40-4.[address] [place], [place] [address] [phone] T4,Free 1.2 ng/dL 0.8-1.8 CBC W/ Diff & PLT 06/24/2012 [facility] WBC 5.0 thous/L 3.8-10.[address] [place] [address] [phone] RBC 3.63 mill/L Low 3.80-5.10 Hemoglobin 11.8 g/dL 11.7-15.5 Hematocrit 34.8 % Low 35.0-45.0 MCV 96.0 FL 80.0-100.0 MCH 32.6 pg 27.0-33.0 MCHC 34.0 g/dL 32.0-36.0 RDW 13.0 % 11.0-15.0 Platelet Count 205 thous/L 140-400 Neutrophils,Absolute 3430 cells/L 5219-5115 Lymphocytes,Absolute 1200 cells/L 850-3900 Monocytes,Absolute 340 cells/L 200-950 Eosinophils,Absolute 30 cells/L 15-500 Basophils,Absolute 20 cells/L 0-200 Total Neutrophils,% 68 % 38-80 Total Lymphocytes,% 24 % 15-49 Monocytes,% 7 % 0-13 Eosinophils,% 1 % 0-8 Basophils,% 1 % 0-2 Laboratory test 06/24/2012 [facility] Glucose 83 mg/dL 65-99 [address] [place], [place] [id number] [phone] TSH & T4,Free 02/04/2012 [facility] TSH 2.63 mIU/L 0.40-4.[address] [place] [address] [phone] T4,Free 1.0 ng/dL 0.8-1.8 TSH & T4,Free 11/07/2011 [facility] TSH 4.98 mIU/L High 0.40-4.[address] [place], [place] [id number] [phone] T4,Free 0.6 ng/dL Low 0.8-1.8 TSH & T4,Free 05/21/2011 [facility] TSH,3RD 0.01 mIU/L Low 0.40-4.[address] [place] [address] [phone] T4,Free 1.6 ng/dL 0.8-1.8 Laboratory test 05/21/2011 [facility] Glucose 98 mg/dL 65-99 65 finding [address] [place] [address] [phone] CBC W/ Diff & PLT 05/21/2011 [facility] WBC 5.5 thous/L 3.8-10.[address] [place], [place] [address] [phone] RBC 4.03 mill/L 3.80-5.10 Hemoglobin 12.9 g/dL 11.7-15.5 Hematocrit 37.4 % 35.0-45.0 MCV 92.9 FL 80.0-100.0 MCH 32.1 pg 27.0-33.0 MCHC 34.5 g/dL 32.0-36.0 RDW 13.4 % 11.0-15.0 Platelet Count 235 thous/L 140-400 Neutrophils,Absolute 3340 cells/L 0193-9175 Lymphocytes,Absolute 1500 cells/L 850-3900 Monocytes,Absolute 470 cells/L 200-950 Eosinophils,Absolute 120 cells/L 15-500 Basophils,Absolute 40 cells/L 0-200 Total Neutrophils,% 61 % 38-80 Total Lymphocytes,% 28 % 15-49 Monocytes,% 9 % 0-13 Eosinophils,% 2 % 0-8 Basophils,% 1 % 0-2 Lipid Panel 05/21/2011 [facility] Cholesterol 179 mg/dL 125-[address] [place] [address] [phone] HDL Cholesterol 62 mg/dL > Or=46 Cholesterol/HDL Ratio 2.9 < Or=5.0 LDL Chol,Calculated 103 mg/dL <130 66 Triglycerides 71 mg/dL <150 T4 & TSH 02/06/2011 [facility] T4,Total 11.2 g/dL 4.5-12.[address] [place] [address] [phone] TSH,3RD Generation 0.01 mIU/L Low 0.40-4.50 67 Hepatic Function 02/06/2011 [facility] Alkaline Phosphatase 40 U/L 33- [address] [place] [address] [phone] Ast 12 U/L 10-30 Alt 12 U/L 6-40 Bilirubin,Total 0.5 mg/dL 0.2-1.2 Bilirubin,Direct 0.1 mg/dL < Or=0.2 Protein,Total 6.9 g/dL 6.2-8.3 Albumin 4.4 g/dL 3.6-5.1 Globulin,Calculated 2.5 g/dL 2.2-3.9 A/G Ratio 1.8 1.0-2.1 Vitamin D, 25 02/06/2011 [facility] Vitamin 27 ng/mL Low 30-[address] D,25-Oh,[place] [address] [phone] Vitamin D,25-Oh,D3 27 ng/mL Vitamin D,25-Oh,D2 <4 ng/mL 68 Basic Metabolic Panel 11/14/2010 [facility] Sodium 136 mmol/L 135-[address] [place] [address] [phone] Potassium 4.6 mmol/L 3.5-5.3 Chloride 105 mmol/L 98-110 Carbon Dioxide 22 mmol/L 21-33 Calcium 9.8 mg/dL 8.6-10.2 Glucose 87 mg/dL 65-99 69 Urea Nitrogen 20 mg/dL 7-25 Creatinine 1.00 mg/dL 0.59-1.07 BUN/Creatinine Ratio 19.8 6-22 Egfr Non-Afr. Scottish 68 ML/MIN/1.73M2 > Or=60 Egfr 79 ML/MIN/1.73M2 > Or=60 Lipid Panel 11/14/2010 [facility] Cholesterol 182 mg/dL 125-[address] [place] [address] [phone] HDL Cholesterol 77 mg/dL > Or=46 Triglycerides 48 mg/dL <150 Cholesterol/HDL Ratio 2.4 < Or=5.0 LDL Chol,Calculated 95 mg/dL <130 70 CBC W/ Diff & PLT 11/14/2010 [facility] WBC 5.0 thous/L 3.8-10.[address] [place], [place] [id number] [phone] RBC 4.33 mill/L 3.80-5.10 Hemoglobin 13.5 g/dL 11.7-15.5 Hematocrit 40.2 % 35.0-45.0 MCV 92.9 FL 80.0-100.0 MCH 31.2 pg 27.0-33.0 MCHC 33.6 g/dL 32.0-36.0 RDW 13.2 % 11.0-15.0 Platelet Count 248 thous/L 140-400 Platelet Sufficiency NORMAL Normal Neutrophils,Absolute 3240 cells/L 3776-8229 Bands,Absolute DNR cells/L 0-750 Metamyelocytes,Absolute DNR cells/L [...] Lab TSH,3RD <0.01 Low 0.40-4.[address] Generation mIU/L [place], [place] [id number] [phone] T4,Free 1.4 ng/dL 0.8-1.8 TSH & T4,Free 05/16/2010 [facility] TSH,3RD 0.02 mIU/L Low 0.40-4.[address] [place] [address] [phone] T4,Free 1.0 ng/dL 0.8-1.8 BMP W/Egfr 11/16/2009 [facility] Sodium 140 mmol/L 135-[address] [place] [address] [phone] Potassium 3.7 mmol/L 3.5-5.3 Chloride 108 mmol/L 98-110 Carbon Dioxide 24 mmol/L 21-33 Calcium 8.8 mg/dL 8.6-10.2 Glucose 85 mg/dL 65-99 73 Urea Nitrogen 12 mg/dL 7-25 Creatinine 0.97 mg/dL 0.59-1.07 BUN/Creatinine Ratio 12.2 6-22 Egfr Non-Afr. Scottish >60 ML/MIN/1.73M2 > Or=60 Egfr >60 ML/MIN/1.73M2 > Or=60 Lipid Panel 11/16/2009 [facility] Cholesterol 148 mg/dL 125-[address] [place] [address] [phone] HDL Cholesterol 47 mg/dL > Or=46 Cholesterol/HDL Ratio 3.1 < Or=5.0 LDL Chol,Calculated 80 mg/dL <130 74 Triglycerides 103 mg/dL <150 CBC W/ Diff & PLT 11/16/2009 [facility] WBC 3.7 thous/L Low 3.8-10.[address] [place] [address] [phone] RBC 4.19 mill/L 3.80-5.10 Hemoglobin 12.9 g/dL 11.7-15.5 Hematocrit 38.8 % 35.0-45.0 MCV 92.8 FL 80.0-100.0 MCH 30.8 pg 27.0-33.0 MCHC 33.2 g/dL 32.0-36.0 RDW 13.1 % 11.0-15.0 Platelet Count 239 thous/L 140-400 Platelet Sufficiency NORMAL Normal Neutrophils,Absolute 2570 cells/L 8007-1742 Bands,Absolute DNR cells/L 0-750 Metamyelocytes,Absolute DNR cells/L [...] Lab TSH,3RD 1.53 mIU/L 0.40-4.[address] [place], [place] [address] [phone] T4,Free 0.7 ng/dL Low 0.8-1.8 TSH & T4,Free 05/24/2009 [facility] TSH,3RD 0.02 mU/L Low 0.40-4.[address] [place], [place] [address] [phone] T4,Free 1.6 ng/dL 0.8-1.8 CBC W/ Diff & PLT 02/22/2009 [facility] WBC 4.4 thous/L 3.8-10.[address] [place] [address] [phone] RBC 3.94 mill/L 3.80-5.10 Hemoglobin 12.9 g/dL 11.7-15.5 Hematocrit 36.7 % 35.0-45.0 MCV 93.0 FL 80.0-100.0 MCH 32.6 pg 27.0-33.0 MCHC 35.1 g/dL 32.0-36.0 RDW 13.2 % 11.0-15.0 Platelet Count 231 thous/L 140-400 Platelet Sufficiency NORMAL Normal Neutrophils,Absolute 2610 cells/L 7014-2430 Bands,Absolute DNR cells/L 0-750 Metamyelocytes,Absolute DNR cells/L [...] [facility] Cholesterol 164 mg/dL 125-[address] [place] [address] [phone] HDL Cholesterol 60 mg/dL > Or=46 Triglycerides 72 mg/dL <150 Cholesterol/HDL Ratio 2.7 < Or=5.0 LDL Chol,Calculated 90 mg/dL <130 77 TSH & T4,Free 02/22/2009 [facility] TSH,3RD 3.69 mU/L 0.40-4.[address] [place] [address] [phone] T4,Free 1.0 ng/dL 0.8-1.8 Laboratory test 02/22/2009 [facility] Glucose 55 mg/dL Low 65-[address] [place] [address] [phone] TSH & T4,Free 08/11/2008 [facility] TSH,3RD 0.52 mU/L 0.40-4.[address] [place] [address] [phone] T4,Free 1.1 ng/dL 0.8-1.8 TSH & T4,Free 02/04/2008 [facility] TSH,3RD 2.31 mU/L 0.40-4.[address] [place] [address] [phone] T4,Free 1.1 ng/dL 0.8-1.8 CSF Cell Count/Diff 12/11/2007 [facility] Color PINK [address] [place] [address] [phone] Appearance CLEAR CSF WBC 0 /mm3 0-5 CSF RBC 216 /mm3 High -0 Laboratory test 12/11/2007 [facility] CSF Cell DNR 83, [address] Count/[place] [address] [phone] Laboratory test 12/11/2007 [facility] CSF Glucose DNR [address] [place] [address] [phone] CSF Total Protein DNR 86 Laboratory test 12/11/2007 [facility] CSF Culture DNR [address] [place] [address] [phone] Laboratory test 12/11/2007 [facility] Urine HCG DNR [address] (Qualitative) [place] [address] [phone] TSH & T4,Free 08/13/2007 [facility] TSH,3RD 4.73 High 0.40- 89, [address] Generation mU/L 4.50 [place] [address] [phone] T4,Free 1.2 ng/dL 0.8-1.8 Lipid Panel 08/13/2007 [facility] Cholesterol 184 mg/dL 125-[address] [place] [address] [phone] HDL Cholesterol 74 mg/dL > Or=40 91 Cholesterol/HDL Ratio 2.5 < Or=5.0 LDL Chol,Calculated 102 mg/dL <130 92 Triglycerides 42 mg/dL <150 TSH & T4,Free 02/09/2007 [facility] TSH 4.70 mU/L 0.40-5.50 [facility] [place] [address] [phone] T4,Free 1.0 ng/dL 0.8-1.8 CBC W/ Diff & PLT 02/09/2007 [facility] WBC 4.9 thous/L 3.8-10.8 [address] [facility] [place] [address] [phone] RBC 4.16 mill/L 3.80-5.10 Hemoglobin 13.1 g/dL 11.7-15.5 Hematocrit 38.4 % 35.0-45.0 MCV 92.3 FL 80.0-100.0 MCH 31.6 pg 27.0-33.0 MCHC 34.2 g/dL 32.0-36.0 RDW 14.0 % 11.0-15.0 Platelet Count 261 thous/L 140-400 Platelet Sufficiency NORMAL Normal Neutrophils,Absolute 3380 cells/L [phone] Bands,Absolute DNR cells/L 0-750 Metamyelocytes,Absolute DNR cells/L [...] TSH 0.21 mU/L Low 0.40-5.[address] [place] [address] [phone] T4,Free 1.4 ng/dL 0.8-1.8 TSH & T4,Free 06/26/2006 [facility] TSH 7.58 mU/L High 0.40-5.[address] [place] [address] [phone] T4,Free 1.1 ng/dL 0.8-1.8 1 FASTING 2 [...] approximately 13% higher for people identified as -Scottish. 6 LDL-C is now calculated using the Gael-Pulliam calculation, which is a validated novel method providing better accuracy than the Friedewald equation in the estimation of LDL-C. Gael SS et al.YIMI.2013;310(19):2418-4805 Desirable range <100 mg/dL for primary prevention; <70 mg/dL for patients with CHD or diabetic patients with >or=2 CHD risk factors. For additional information, please refer to http://education.[employer]/faq/JMX241(This link is being provided for informational/educational purposes [...] the estimation of LDL-C. Gael SS et al.YIMI.2013;310(19):0014-4108 Desirable range <100 mg/dL for primary prevention; <70 mg/dL for patients with CHD or diabetic patients with >or=2 CHD risk factors. For additional information, please refer to [email or web address](This link is being provided for informational/educational purposes only.) 10 For patients with diabetes plus 1 major ASCVD risk factor, treating to a non-HDL-C goal of <100 mg/dL (LDL-C of <70 mg/ dL) is considered a therapeutic option. 11 GLUCOSE REFERENCE RANGE BASED ON FASTING SPECIMEN. 12 The upper reference limit for Creatinine is approximately 13% higher for people identified as -Scottish. 13 REFERENCE RANGES BELOW ARE APPLICABLE TO FEMALES FIRST TRIMESTER - 0.26 - 2.66 mIU/L SECOND TRIMESTER - 0.55 - 2.73 mIU/L THIRD TRIMESTER - 0.43 - 2.91 mIU/L 14 LDL-C is now calculated using the Gael-Pulliam calculation, which is a validated novel method providing better accuracy than the Friedewald equation in the estimation of LDL-C. Gael SS et al.YIMI.2013;310(19):4978-7125 ([email or web address]) Desirable range <100 mg/dL for patients with [...] Malcolm, 2015. Pediatric Reference Intervals, 7th Ed, [facility], 2011. 17 REFERENCE RANGES BELOW ARE APPLICABLE TO FEMALES FIRST TRIMESTER - 0.26 - 2.66 mIU/L SECOND TRIMESTER - 0.55 - 2.73 mIU/L THIRD TRIMESTER - 0.43 - 2.91 mIU/L 18 GLUCOSE REFERENCE RANGE BASED ON FASTING SPECIMEN. 19 The upper reference limit for Creatinine is approximately 13% higher for people identified as -Scottish. 20 Relative blood cell counts (%) should [...] approximately 13% higher for people identified as -Scottish. 23 REFERENCE RANGES BELOW ARE APPLICABLE TO [...] From the Standard Lipid Profile. YIMI. 2013;310(19): 1498-0910. Desirable range <100 mg/dL for patients with [...] approximately 13% higher for people identified as -Scottish. 28 Relative blood cell counts (%) should [...] THYROGLOBULIN BY TANDEM MASS SPECTROMETRY [TEST CODE #76840 THYROGLOBULIN,LC/ MS/MS; OR PANEL TEST CODE #02516 THYROID CANDER (THYROGLOBULIN) MONITORING] TEST IS RECOMMENDED [...] Malcolm, 2015. Pediatric Reference Intervals, 7th Ed, [facility] [employer], 2011. 38 GLUCOSE REFERENCE RANGE BASED [...] OF FREE T4 REAGENT AVAILABLE FROM THE LAP REGULATOR PRODUCES RESULTS THAT ARE APPROXIMATELY 9% HIGHER [...] - 0.40 - 2.70 mU/L 82 Specimen: [id number] - TEST: CSFCC CSF CELL COUNT FROM: CSF Tube #1 TEST : CSFCC Specimen: [id number] - TEST: CSFCC CSF CELL COUNT FROM: CSF Tube #1 TEST : CSFCC 83 Specimen: [id number] - TEST: CSFCC CSF CELL COUNT FROM: [...] mU/L Procedures Date Code Description Status 02/27/2017 82100 Non-Invcorrotid/Comp /Bilat Study Completed 02/27/2017 07758 Echocardiography Completed 02/15/2016 88873 Bone Density Completed 02/15/2016 [id number] Bone Mineral Density Test Completed 02/13/2016 82120 EKG-Tracing & Report Completed 07/27/2015 [id number] Mammogram Completed 12/02/2014 63608 EKG-Tracing & Report Completed 12/09/2013 11589 EKG-Tracing & Report Completed 12/09/2013 31616 Bone Density Completed 12/07/2013 39205 Echocardiography Completed 06/29/2013 41794 EKG-Tracing & Report Completed 06/26/2006 96658 EKG-Tracing & Report Completed Encounters Type Date [...] (Aquired) Office Visit 11/21/2004 10:30a Main Office Dane [email or web address] Hypothyroidism M.D. (Aquired) Office Visit 08/15/2004 3:15p Main Office Dane [email or web address] Hypothyroidism M.D. (Aquired) Office Visit 05/16/2004 3:30p Main Office Dane [email or web address] Hypothyroidism M.DNeil (Aquired) 780.71 Chronic Fatigue Syndrome 599.00 UTI / Urosepsis Infection Plan of Treatment 08/03/2018 - Candie Rangel M.D.Z12.31 Encounter for screening mammogram for malignant neoplasm of breastNew Xrays:Bilateral Screening Mamogram, Ordered: E03.9 Hypothyroidism, unspecifiedComments:monitor TSH regularly (2x yearly ) call for hot or cold intolerance sweats or palpitationsFollow up:Followup:. ( Follow up)J01.90 Acute sinusitis, unspecified
[2018-11-25 08:49] VITALS: BP 111/71
[2018-11-25] MEDS ORDERED: Acetaminophen TAB* 325 MG PO ONE (08:58)
--- NOTE | 2018-11-25 09:40 | UC ---
Ear Complaint HPI - HPI Summary HPI Summary: 53-year-old woman comes in with a chief complaint of bilateral ear pain including drainage from the left ear. She's had upper respiratory tract infection symptoms for last 4 days. Overnight she started having ear pain including drainage from the left ear. [id number] medications help with the symptoms. No cough chest congestion or shortness of breath. - History of Current Complaint Chief Complaint: UCEar Stated Complaint: LEFT EAR PAIN, CONGESTION Time Seen by Provider: 11/25/18 09:28 Hx Last Menstrual Period: 11/07/15 Pain Intensity: 8 - Allergies/Home Medications Allergies/Adverse Reactions: Allergies Allergy/AdvReac Type Severity Reaction Status Date / Time No Known Allergies Allergy Verified 11/25/18 08:44 Home Medications: Home Medications Ibuprofen TAB* [Advil TAB*] 400 mg PO Q6H PRN 11/25/18 [History Confirmed ] Levothyroxine Sodium [Levoxyl] 25 mcg PO DAILY 11/25/18 [History Confirmed 11/25] Levothyroxine Sodium [Levoxyl] 200 mcg PO DAILY 11/25/18 [History Confirmed ] PMH/Surg Hx/FS Hx/Imm Hx Previously Healthy: Yes Endocrine History: Hypothyroidism - Surgical History Surgical History: None - Family History Known Family History: Positive: Non-Contributory - Social History Alcohol Use: Occasionally Substance Use Type: None Smoking Status (MU): Never Smoked Tobacco Review of Systems All Other Systems Reviewed And Are Negative: Yes Constitutional: Positive: Negative Skin: Positive: Negative Eyes: Positive: Negative ENT: Positive: Sore Throat, Ear Ache, Nasal Discharge, Sinus Congestion, Other - SEE HPI Respiratory: Positive: Negative Cardiovascular: Positive: Negative Gastrointestinal: Positive: Negative Motor: Positive: Negative Neurovascular: Positive: Negative Musculoskeletal: Positive: Negative Neurological: Positive: Negative Psychological: Positive: Negative Is Patient Immunocompromised?: No Physical Exam Triage Information Reviewed: Yes Appearance: No Pain Distress, Well-Nourished, Ill-Appearing - MILD Vital Signs: Initial Vital Signs Temp 98.6 F 11/25/18 08:42 Pulse 89 11/25/18 08:42 Resp 20 11/25/18 08:42 BP 111/71 11/25/18 08:42 Pulse Ox 100 11/25/18 08:42 Vital Signs Reviewed: Yes Eye Exam: Normal Eyes: Positive: Conjunctiva Clear ENT: Positive: Pharyngeal erythema, Nasal congestion, Nasal drainage, TM bulging - B/L, TM red - B/L, Other - Left ear tragus is tender to palpation. There is liquid and debris in the ear canal. I am unable to visualize the eardrum well enough to see a perforation. Neck exam: Normal Neck: Positive: Supple Respiratory: Positive: Lungs clear, Normal breath sounds, No respiratory distress Cardiovascular: Positive: RRR Musculoskeletal Exam: Normal Musculoskeletal: Positive: Strength Intact, ROM Intact Neurological Exam: Normal Neurological: Positive: Alert, Muscle Tone Normal Psychological Exam: Normal Psychological: Positive: Normal Response To Family, Age Appropriate Behavior Skin Exam: Normal Ear Complaint Course/Dx - Differential Dx/Diagnosis Provider Diagnosis: Otitis media, Left otitis externa Discharge - Sign-Out/Discharge Documenting (check all that apply): Patient Departure All imaging exams completed and their final reports reviewed: No Studies - Discharge Plan Condition: Stable Disposition: HOME Prescriptions: Amoxicillin/Clavulanate TAB* [Augmentin TAB 875*] 875 mg PO BID #20 tab Ofloxacin 0.3% (Ear Drop)* [Floxin 0.3% OTIC.MARY (Ear Drop)] 5 drop LEFT EAR BID #1 btl Patient Education Materials: Otitis Externa (ED), Ear Infection (ED) Referrals: Candie Rangel MD [Primary Care Provider] - Antoni Haley MD [Medical Doctor] - Additional Instructions: FOLLOW UP WITH YOUR PRIMARY DOCTOR OR ENT IF NOT COMPLETELY IMPROVED. GET RECHECKED FOR ANY WORSENING OF YOUR CONDITION OR QUESTIONS OR CONCERNS. - Billing Disposition and Condition Condition: STABLE Disposition: Home
== END 2018-11-25 09:57 | disposition home or self-care (01) ==
LOC: UCCORT 08:22
DX: H60.92 Unspecified otitis externa, left ear (principal); H66.93 Otitis media, unspecified, bilateral; E03.9 Hypothyroidism, unspecified; J02.9 Acute pharyngitis, unspecified; R09.89 Other specified symptoms and signs involving the circulatory and respiratory systems; R09.81 Nasal congestion; Z79.899 Other long term (current) drug therapy
CPT/HCPCS: 99212; A9270-GY; G0463